=== PATIENT | male | born 1960 | race Two or more races ===

== ENCOUNTER 2019-01-19 09:20 | Inpatient (IN) | payer SELFPAY ==
--- NOTE | 2019-01-19 09:39 | HP ---
CIWA Score Nausea/Vomitin Muscle Tremors: 4-Moderate,w/Arms Extend Anxiety: 3 Agitation: 3 Paroxysmal Sweats: 3 Orientation: 2-Disoriented Date<2 days Tacttile Disturbances: 0-None Auditory Disturbances: 0-None Visual Disturbances: 1-Very Mild Sensitivity Headache: 0-None Present CIWA-Ar Total Score: 19 - Admission Criteria OASAS Guidelines: Admission for Medically Managed Detox: Requires at least one of the followin. CIWA greater than 12 2. Seizures within the past 24 hours 3. Delirium tremens within the past 24 hours 4. Hallucinations within the past 24 hours 5. Acute intervention needed for co occurring medical disorder 6. Acute intervention needed for co occurring psychiatric disorder 7. Severe withdrawal that cannot be handled at a lower level of care (continued vomiting, continued diarrhea, abnormal vital signs) requiring intravenous medication and/or fluids 8. Admitting History and Physical - Admission Chief Complaint: "I want to come in for detox." History Source: Patient Limitations to Obtaining History: No Limitations - Past Medical History Pulmonary: Yes: Asthma, Bronchitis - Past Surgical History Past Surgical History: Yes: None - Advance Directives Advance Directives: No: Living Will, Health Care Proxy, DNR - Smoking History Smoking history: Current every day smoker Have you smoked in the past 12 months: Yes Aproximately how many cigarettes per day: 3 - Alcohol/Substance Use Hx Alcohol Use: Yes (1/5 vodka every other day and beers daily 6 pack) Number of Drinks Daily: 10 History of Substance Use: reports: None Date of Last Use: 01/18/19 - Social History Usual Living Arrangement: Yes: Alone Do you think of yourself as: Straight/Heterosexual ADL: Independent History of Recent Travel: Yes Admission [facility] Allergies/Adverse Reactions: Allergies Allergy/AdvReac Type Severity Reaction Status Date / Time No Known Allergies Allergy Verified 01/19/19 09:53 Exam Limitations: No Limitations - Ebola screening Have you traveled outside of the country in the last 21 days: No Have you had contact with anyone from an Ebola affected area: No Have you been sick,other than usual withdrawal symptoms: No Do you have a fever: No - Review of Systems Constitutional: Chills EENT: reports: Blurred Vision Respiratory: reports: No Symptoms reported GI: reports: Nausea, Abdominal cramping : reports: No Symptoms Reported Musculoskeletal: reports: No Symptoms Reported Integumentary: reports: No Symptoms Reported Neuro: reports: No Symptoms reported Endocrine: reports: No Symptoms Reported Hematology: reports: No Symptoms Reported Psychiatric: reports: Judgement Intact, Mood/Affect Appropiate, Orientated x3 Other Systems: Reviewed and Negative Patient History - Patient Medical History Hx Asthma: No Hx Chronic Obstructive Pulmonary Disease (COPD): No Hx Cardiac Disorders: No Hx Hypertension: No Hx Seizures: No Hx Diabetes: No Hx Gastrointestinal Disorders: No Hx Liver Disease: Yes Hx Genitourinary Disorders: No Hx Sexually Transmitted Disorders: No Hx Renal Disease (ESRD): No Hx Depression: Yes Hx Suicide Attempt: Yes (suicidal attempted x3, last attempted in 1991) Hx Schizophrenia: No - Patient Surgical History Past Surgical History: Yes Hx Neurologic Surgery: No Hx Cataract Extraction: No Hx Cardiac Surgery: No Hx Lung Surgery: No Hx Breast Surgery: No Hx Breast Biopsy: No Hx Abdominal Surgery: No Hx Appendectomy: No Hx Cholecystectomy: No Hx Genitourinary Surgery: No Hx Section: No Hx Orthopedic Surgery: Yes (right knee sx in 2005) Other Surgical History: right middle and small finger sx in 1989 Anesthesia Reaction: No - PPD History Previous Implant?: No Documented Results: Positive w/o proof Implanted On Prior [facility] Admission?: No Date: 04/01/11 Results: 0 mm PPD to be Administered?: No - Smoking Cessation Smoking history: Current every day smoker Have you smoked in the past 12 months: Yes Aproximately how many cigarettes per day: 3 Hx Chewing Tobacco Use: No Initiated information on smoking cessation: Yes 'Breaking Loose' booklet given: 01/19/19 - Substances abused Alcohol Substance route: Oral Frequency: Daily Amount used: 1 pint of vodka Age of first use: 12 Date of last use: 01/19/19 Admission Physical Exam [facility] - Physical General Appearance: Yes: Mild Distress HEENTM: Yes: EOMI, Hearing grossly Normal, Normal ENT Inspection, Normocephalic , Normal Voice, MARK, Pharynx Normal, Tm's normal Respiratory: Yes: Within Normal Limits, Chest Non-Tender, Lungs Clear Neck: Yes: No masses,lesions,Nodules, Trachea in good position Breast: Yes: Within Normal Limits Cardiology: Yes: Regular Rhythm, Regular Rate Abdominal: Yes: Normal Bowel Sounds, Non Tender, Protuberent Genitourinary: Yes: Within Normal Limits Back: Yes: Normal Inspection Musculoskeletal: Yes: full range of Motion, Gait Steady, Pelvis Stable Extremities: Yes: Normal Capillary Refill, Normal Inspection, Normal Range of Motion, Non-Tender Neurological: Yes: shoulder boner II-XII NML intact, Fully Oriented, Alert, Motor Strength 5/5, Normal Mood/Affect, Normal Response Integumentary: Yes: Normal Color, Warm Lymphatic: Yes: Within Normal Limits - Diagnostic (1) Alcohol dependence with withdrawal Current Visit: Yes Status: Acute Cleared for Admission [facility] - Detox or Rehab [facility] Level of Care: Medically Managed Detox Regimen/Protocol: Not Applicable (ativan protocol) Claeared for Rehab Admission: No Screened but not Admitted - Documentation of Visit Screened but not Admitted: No Inpatient Rehab Admission - Rehab Decision to Admit Inpatient rehab admission?: No
[2019-01-19 09:59] VITALS: BMI 34.7
[2019-01-19] MEDS ORDERED: LORazepam 1 MG TABLET PO PRN (10:38)
[2019-01-19] MEDS ORDERED: BISMUTH SUBSALICYLATE 524 MG/30 ML UD PO PRN (10:38)
[2019-01-19] MEDS ORDERED: METHOCARBAMOL 500 MG TABLET PO PRN (10:38)
[2019-01-19] MEDS ORDERED: hydrOXYzine PAMOATE 25 MG CAPSULE (FP) PO PRN (10:38)
[2019-01-19] MEDS ORDERED: MAG HYDROX/AL HYDROX/SIMETH 30 ML UNIT-DOSE CUP PO PRN (10:38)
[2019-01-19] MEDS ORDERED: MAGNESIUM HYDROX 2400MG/30ML ORAL SUSPENSION 30 ML CUP PO PRN (10:38)
[2019-01-19] MEDS ORDERED: MAGNESIUM CITRATE 300 ML BOTTLE PO PRN (10:38)
[2019-01-19] MEDS ORDERED: ACETAMINOPHEN 325 MG TABLET (FP) PO PRN ×2 (10:38)
[2019-01-19] MEDS ORDERED: IBUPROFEN 400 MG TABLET (FP) PO PRN (10:38)
[2019-01-19] MEDS ORDERED: MELATONIN 5 MG TABLETS PO PRN (10:38)
[2019-01-19] MEDS ORDERED: ALBUTEROL SO4 8 GM HFA INHALER IH PRN (10:41)
[2019-01-19] MEDS ORDERED: guaiFENesin/CODEINE 10 ML UNIT-DOSE CUPS PO PRN (10:42)
[2019-01-19] MEDS ORDERED: ONDANSETRON *ODT* 4 MG TABLET SL PRN (11:26)
[2019-01-19] MEDS: LORazepam 2 MG TABLET PO SCH ×3 (14:26→22:04)
[2019-01-19] MEDS: MENTHOL/PHENOL 1 EACH UD MM PRN (14:28)
[2019-01-19] MEDS ORDERED: guaiFENesin 200 MG/10 ML 10 ML UNIT-DOSE CUPS PO PRN (15:06)
[2019-01-19 15:57] LABS: HEMATOCRIT 45.5 % (35.4-49); HEMOGLOBIN 15.1 GM/dL (11.7-16.9); MCH 29.5 pg (25.7-33.7); MCHC 33.1 g/dl (32.0-35.9); MEAN CELL VOLUME 89.2 fl (80-96); MEAN PLT VOLUME 9.2 fl (7.5-11.1); PLATELET COUNT 244 K/MM3 (134-434); RDW 14.3 % (11.9-15.9); WHITE BLOOD COUNT 4.1 K/mm3 (4.0-10.0)
[2019-01-19 16:31] LABS: ALBUMIN 3.9 g/dl (3.4-5.0); BILIRUBIN,TOTAL 0.3 mg/dL (0.2-1); BLOOD UREA NITROGEN 13.6 mg/dL (7-18); CALCIUM 9.5 mg/dL (8.5-10.1); CREATININE 1.1 mg/dL (0.55-1.3); POTASSIUM 4.1 mmol/L (3.5-5.1)
[2019-01-19] MEDS: THIAMINE HCL 100 MG TABLET (FP) PO SCH (22:04)
[2019-01-19] MEDS: FLUTICASONE/SALMETEROL 100 MCG/50 MCG DISKUS IH SCH (22:04)
[2019-01-20] MEDS: LORazepam 2 MG TABLET PO SCH ×4 (06:18→22:01)
[2019-01-20] MEDS: PRENATAL VITAMINS W/ FOLIC ACID TABLET (FP) PO SCH (10:38)
[2019-01-20] MEDS: FLUTICASONE/SALMETEROL 100 MCG/50 MCG DISKUS IH SCH ×2 (10:38→22:02)
[2019-01-20] MEDS: NICOTINE 7 MG/24 HOURS TOPICAL PATCH TD SCH (10:41)
[2019-01-20] MEDS ORDERED: FLU VACCINE QUAD 60 MCG/0.5 ML (MDV 19-20) IM ONE (12:00)
--- NOTE | 2019-01-20 14:57 | PN ---
S CIWA - CIWA Score Nausea/Vomitin-Mild Nausea/No Vomiting Muscle Tremors: 4-Moderate,w/Arms Extend Anxiety: 3 Agitation: 2 Paroxysmal Sweats: 2 Orientation: 1-Uncertain about Date (date of week) Tacttile Disturbances: 0-None Auditory Disturbances: 0-None Visual Disturbances: 0-None Headache: 0-None Present CIWA-Ar Total Score: 13 S Progress Note (SOAP) Subjective: 58 years old male admitted on 01/19/19 treated with ativen detox regimen request psychiatric consultation that he is taking seroquel patient ate breakfast resting on bed feeling tired limited conversation with staff Objective: 01/20/19 14:57 Vital Signs Temperature 98.1 F 01/20/19 13:06 Pulse Rate 81 01/20/19 13:06 Respiratory Rate 18 01/20/19 13:06 Blood Pressure 124/88 01/20/19 13:06 O2 Sat by Pulse Oximetry (%) Laboratory Last Values WBC 4.1 K/mm3 (4.0-10.0) 01/19/19 10:55 RBC 5.10 M/mm3 (4.00-5.60) 01/19/19 10:55 Hgb 15.1 GM/dL (11.7-16.9) 01/19/19 10:55 Hct 45.5 % (35.4-49) 01/19/19 10:55 MCV 89.2 fl (80-96) 01/19/19 10:55 MCH 29.5 pg (25.7-33.7) 01/19/19 10:55 MCHC 33.1 g/dl (32.0-35.9) 01/19/19 10:55 RDW 14.3 % (11.9-15.9) D 01/19/19 10:55 Plt Count 244 K/MM3 (134-434) D 01/19/19 10:55 MPV 9.2 fl (7.5-11.1) 01/19/19 10:55 Sodium 140 mmol/L (136-145) 01/19/19 10:55 Potassium 4.1 mmol/L (3.5-5.1) 01/19/19 10:55 Chloride 111 mmol/L (98-107) H 01/19/19 10:55 Carbon Dioxide 22 mmol/L (21-32) 01/19/19 10:55 Anion Gap 7 MMOL/L (8-16) L 01/19/19 10:55 BUN 13.6 mg/dL (7-18) 01/19/19 10:55 Creatinine 1.1 mg/dL (0.55-1.3) 01/19/19 10:55 Est GFR (CKD-EPI)AfAm 85.31 01/19/19 10:55 Est GFR (CKD-EPI)NonAf 73.61 01/19/19 10:55 Random Glucose 97 mg/dL (74-106) 01/19/19 10:55 Calcium 9.5 mg/dL (8.5-10.1) 01/19/19 10:55 Total Bilirubin 0.3 mg/dL (0.2-1) 01/19/19 10:55 AST 13 U/L (15-37) L 01/19/19 10:55 ALT 28 U/L (13-61) 01/19/19 10:55 Alkaline Phosphatase 100 U/L (45-117) 01/19/19 10:55 Total Protein 7.0 g/dl (6.4-8.2) 01/19/19 10:55 Albumin 3.9 g/dl (3.4-5.0) 01/19/19 10:55 RPR Titer Nonreactive (NONREACTIVE) 01/19/19 10:55 HIV 1&2 Antibody Screen Negative 01/19/19 10:55 HIV P24 Antigen Negative 01/19/19 10:55 lab ntoed Assessment: 01/20/19 14:58 alcohol withdrawal sx Plan: continue ativen detox regimen
[2019-01-20] MEDS: THIAMINE HCL 100 MG TABLET (FP) PO SCH (22:01)
[2019-01-21] MEDS: LORazepam 1 MG TABLET PO SCH ×4 (06:28→22:09)
[2019-01-21] MEDS: PRENATAL VITAMINS W/ FOLIC ACID TABLET (FP) PO SCH (10:21)
[2019-01-21] MEDS: FLUTICASONE/SALMETEROL 100 MCG/50 MCG DISKUS IH SCH ×2 (10:21→22:09)
[2019-01-21] MEDS: NICOTINE 7 MG/24 HOURS TOPICAL PATCH TD SCH (10:22)
--- NOTE | 2019-01-21 11:05 | PN ---
S CIWA - CIWA Score Nausea/Vomitin-Mild Nausea/No Vomiting Muscle Tremors: 2 Anxiety: 3 Agitation: 2 Paroxysmal Sweats: 2 Orientation: 0-Oriented Tacttile Disturbances: 0-None Auditory Disturbances: 0-None Visual Disturbances: 0-None Headache: 2-Mild CIWA-Ar Total Score: 12 S Progress Note (SOAP) Subjective: 58 years old male admitted on 01/19/19 for alcohol withdrawal sx management treated with ativan detox regimen patient is alert speech clearly denies suicidal ideation requests to be seen by a psychiatrist feeling tired resting on bed encourage to attend meetings and groups Objective: 01/21/19 11:04 Vital Signs Temperature 98.3 F 01/21/19 09:05 Pulse Rate 90 01/21/19 09:05 Respiratory Rate 20 01/21/19 09:05 Blood Pressure 118/83 01/21/19 09:05 O2 Sat by Pulse Oximetry (%) Laboratory Last Values WBC 4.1 K/mm3 (4.0-10.0) 01/19/19 10:55 RBC 5.10 M/mm3 (4.00-5.60) 01/19/19 10:55 Hgb 15.1 GM/dL (11.7-16.9) 01/19/19 10:55 Hct 45.5 % (35.4-49) 01/19/19 10:55 MCV 89.2 fl (80-96) 01/19/19 10:55 MCH 29.5 pg (25.7-33.7) 01/19/19 10:55 MCHC 33.1 g/dl (32.0-35.9) 01/19/19 10:55 RDW 14.3 % (11.9-15.9) D 01/19/19 10:55 Plt Count 244 K/MM3 (134-434) D 01/19/19 10:55 MPV 9.2 fl (7.5-11.1) 01/19/19 10:55 Sodium 140 mmol/L (136-145) 01/19/19 10:55 Potassium 4.1 mmol/L (3.5-5.1) 01/19/19 10:55 Chloride 111 mmol/L (98-107) H 01/19/19 10:55 Carbon Dioxide 22 mmol/L (21-32) 01/19/19 10:55 Anion Gap 7 MMOL/L (8-16) L 01/19/19 10:55 BUN 13.6 mg/dL (7-18) 01/19/19 10:55 Creatinine 1.1 mg/dL (0.55-1.3) 01/19/19 10:55 Est GFR (CKD-EPI)AfAm 85.31 01/19/19 10:55 Est GFR (CKD-EPI)NonAf 73.61 01/19/19 10:55 Random Glucose 97 mg/dL (74-106) 01/19/19 10:55 Calcium 9.5 mg/dL (8.5-10.1) 01/19/19 10:55 Total Bilirubin 0.3 mg/dL (0.2-1) 01/19/19 10:55 AST 13 U/L (15-37) L 01/19/19 10:55 ALT 28 U/L (13-61) 01/19/19 10:55 Alkaline Phosphatase 100 U/L (45-117) 01/19/19 10:55 Total Protein 7.0 g/dl (6.4-8.2) 01/19/19 10:55 Albumin 3.9 g/dl (3.4-5.0) 01/19/19 10:55 RPR Titer Nonreactive (NONREACTIVE) 01/19/19 10:55 HIV 1&2 Antibody Screen Negative 01/19/19 10:55 HIV P24 Antigen Negative 01/19/19 10:55 lab noted Assessment: 01/21/19 11:05 alcohol withdrawal sx Plan: continue ativan detox regimen
--- NOTE | 2019-01-21 14:58 | CONSULT ---
[facility] Psychiatric Consult - Data Date of interview: 01/21/19 Admission source: [facility] Identifying data: Readmission to [facility] for this 58 y/o AA male self- referred for detoxification ([facility]USUM issues : alcohol, cocaine, nicotine, phencyclidine, according to patient). Interviewed at [address] [place] [address]. Patient is , a father of two, domiciled, unemployed and deprived of any source of income. Substance Abuse History: Discussed with the patient. Details are concordant with current [facility] data : Smoking history: Current every day smoker. Have you smoked in the past 12 months: Yes. Aproximately how many cigarettes per day: 3. Hx Chewing Tobacco Use: No. Initiated information on smoking cessation: Yes. 'Breaking Loose' booklet given: 01/19/19. - Substances abused. Alcohol. Substance route: Oral. Frequency: Daily. Amount used: 1 pint of vodka. Age of first use: 12. Date of last use: 01/19/19 Medical History: Obesity, bronchial asthma and history of orthosurgery (right knee) + surgery (right middle finger and fifth finger). Psychiatric History: Patient denies history of psychiatric hospitalizations. No recent psychiatric OPD care although claiming diagnosis of PTSD (unclear). Mr Samson guillory reports history of two suicide attempts (self-mutilation in 1991 + hanging in 2014). Physical/Sexual Abuse/Trauma History: Patient denies. Additional Comment: No toxicology for review. Mental Status Exam - Mental Status Exam Alert and Oriented to: Time, Place, Person Cognitive Function: Good Patient Appearance: Well Groomed (obese) Mood: Withdrawn Affect: Mood Congruent, Normal Range, Constricted Patient Behavior: Fatigued, Cooperative Speech Pattern: Clear Voice Loudness: Normal Thought Process: Intact, Goal Oriented Thought Disorder: Not Present Hallucinations: Denies Suicidal Ideation: Denies Homicidal Ideation: Denies Insight/Judgement: Poor Sleep: Poorly, Difficulty falling asleep (wants seroquel) Appetite: Good Muscle strength/Tone: Normal Gait/Station: Other (slow gait; declines to use his cane for ambulation) Psychiatric Findings - Problem List ([place] 1, 2,3) (1) Alcohol dependence with withdrawal Current Visit: Yes Status: Acute (2) Cannabis dependence Current Visit: Yes Status: Chronic (3) Cocaine dependence Current Visit: Yes Status: Chronic (4) Substance induced mood disorder Current Visit: Yes Status: Chronic (5) Insomnia Current Visit: Yes Status: Chronic - Initial Treatment Plan Initial Treatment Plan: Psychoeducation. Sleep hygiene. Detoxification. Seroquel 100 mg po hs (patient's request). Side effects/benefits discussed with patient. Made aware of potential for sedation, fall, abnormal involuntary movement disorder and metabolic syndrome. Mr Samson guillory gave consent for this plan of care. Observation.
[2019-01-21] MEDS: THIAMINE HCL 100 MG TABLET (FP) PO SCH (22:09)
[2019-01-21] MEDS: QUEtiapine FUMARATE 100 MG TABLET (FP) PO SCH (22:09)
[2019-01-22] MEDS ORDERED: LORazepam 0.5 MG TABLET PO PRN
[2019-01-22] MEDS: LORazepam 0.5 MG TABLET PO SCH ×4 (05:55→22:08)
--- NOTE | 2019-01-22 09:33 | PN ---
S CIWA - CIWA Score Nausea/Vomitin-No Nausea/No Vomiting Muscle Tremors: 2 Anxiety: 2 Agitation: 2 Paroxysmal Sweats: 1-Minimal Palms Moist Orientation: 0-Oriented Tacttile Disturbances: 0-None Auditory Disturbances: 0-None Visual Disturbances: 0-None Headache: 1-Very Mild CIWA-Ar Total Score: 8 S Progress Note (SOAP) Subjective: 58 years old male admitted on 01/19/19 for alcohol withdrawal sx management treated with ativan detox regimen feeling better today ate breakfast resting on bed comfortably encourage community support networking as well as behavior and psychosocial therapies Objective: 01/22/19 09:33 Vital Signs Temperature 96.6 F L 01/22/19 09:13 Pulse Rate 116 H 01/22/19 09:13 Respiratory Rate 18 01/22/19 09:13 Blood Pressure 105/82 01/22/19 09:13 O2 Sat by Pulse Oximetry (%) Laboratory Last Values WBC 4.1 K/mm3 (4.0-10.0) 01/19/19 10:55 RBC 5.10 M/mm3 (4.00-5.60) 01/19/19 10:55 Hgb 15.1 GM/dL (11.7-16.9) 01/19/19 10:55 Hct 45.5 % (35.4-49) 01/19/19 10:55 MCV 89.2 fl (80-96) 01/19/19 10:55 MCH 29.5 pg (25.7-33.7) 01/19/19 10:55 MCHC 33.1 g/dl (32.0-35.9) 01/19/19 10:55 RDW 14.3 % (11.9-15.9) D 01/19/19 10:55 Plt Count 244 K/MM3 (134-434) D 01/19/19 10:55 MPV 9.2 fl (7.5-11.1) 01/19/19 10:55 Sodium 140 mmol/L (136-145) 01/19/19 10:55 Potassium 4.1 mmol/L (3.5-5.1) 01/19/19 10:55 Chloride 111 mmol/L (98-107) H 01/19/19 10:55 Carbon Dioxide 22 mmol/L (21-32) 01/19/19 10:55 Anion Gap 7 MMOL/L (8-16) L 01/19/19 10:55 BUN 13.6 mg/dL (7-18) 01/19/19 10:55 Creatinine 1.1 mg/dL (0.55-1.3) 01/19/19 10:55 Est GFR (CKD-EPI)AfAm 85.31 01/19/19 10:55 Est GFR (CKD-EPI)NonAf 73.61 01/19/19 10:55 Random Glucose 97 mg/dL (74-106) 01/19/19 10:55 Calcium 9.5 mg/dL (8.5-10.1) 01/19/19 10:55 Total Bilirubin 0.3 mg/dL (0.2-1) 01/19/19 10:55 AST 13 U/L (15-37) L 01/19/19 10:55 ALT 28 U/L (13-61) 01/19/19 10:55 Alkaline Phosphatase 100 U/L (45-117) 01/19/19 10:55 Total Protein 7.0 g/dl (6.4-8.2) 01/19/19 10:55 Albumin 3.9 g/dl (3.4-5.0) 01/19/19 10:55 RPR Titer Nonreactive (NONREACTIVE) 01/19/19 10:55 HIV 1&2 Antibody Screen Negative 01/19/19 10:55 HIV P24 Antigen Negative 01/19/19 10:55 lab noted Assessment: 01/22/19 09:33 alcohol withdrawal sx Plan: continue ativan detox regimen
[2019-01-22] MEDS: PRENATAL VITAMINS W/ FOLIC ACID TABLET (FP) PO SCH (10:50)
[2019-01-22] MEDS: NICOTINE 7 MG/24 HOURS TOPICAL PATCH TD SCH (10:51)
[2019-01-22] MEDS: MENTHOL/PHENOL 1 EACH UD MM PRN (10:51)
[2019-01-22] MEDS: FLUTICASONE/SALMETEROL 100 MCG/50 MCG DISKUS IH SCH ×2 (10:51→23:41)
[2019-01-22] MEDS: QUEtiapine FUMARATE 100 MG TABLET (FP) PO SCH (22:08)
[2019-01-22] MEDS: THIAMINE HCL 100 MG TABLET (FP) PO SCH (22:08)
[2019-01-23] MEDS ORDERED: LORazepam 0.5 MG TABLET PO ONE (05:00)
[2019-01-23 09:30] VITALS: BP 115/77; PULSE 110; TEMP 98.5
--- NOTE | 2019-01-23 10:04 | PN ---
[facility] CIWA - CIWA Score Nausea/Vomitin-No Nausea/No Vomiting Muscle Tremors: 1-None Visible, but [place] Anxiety: 1-Mildly Anxious Agitation: 0-Normal Activity Paroxysmal Sweats: No Perspiration Orientation: 0-Oriented Tacttile Disturbances: 0-None Auditory Disturbances: 0-None Visual Disturbances: 0-None Headache: 0-None Present CIWA-Ar Total Score: 2 BHS Progress Note (SOAP) Subjective: alert,no complaint Objective: 01/23/19 10:02 Vital Signs Temperature 98.5 F 01/23/19 09:29 Pulse Rate 110 H 01/23/19 09:29 Respiratory Rate 18 01/23/19 09:29 Blood Pressure 115/77 01/23/19 09:29 O2 Sat by Pulse Oximetry (%) Assessment: 01/23/19 10:02 no withdrawal symptom Plan: discharge today,follow up with after care program as arrangement
--- NOTE | 2019-01-23 10:05 | DS ---
[facility] Detox Discharge Summary Admission Date: 01/19/19 Discharge Date: 01/23/19 - History Present History: Alcohol Dependence Additional Comments: stable for discharge,follow up with after care program as arrangement - Physical Exam Results Vital Signs: Vital Signs Temperature 98.5 F 01/23/19 09:29 Pulse Rate 110 H 01/23/19 09:29 Respiratory Rate 18 01/23/19 09:29 Blood Pressure 115/77 01/23/19 09:29 O2 Sat by Pulse Oximetry (%) Pertinent Admission Physical Exam Findings: withdrawal signs and symptom Laboratory Last Values WBC 4.1 K/mm3 (4.0-10.0) 01/19/19 10:55 RBC 5.10 M/mm3 (4.00-5.60) 01/19/19 10:55 Hgb 15.1 GM/dL (11.7-16.9) 01/19/19 10:55 Hct 45.5 % (35.4-49) 01/19/19 10:55 MCV 89.2 fl (80-96) 01/19/19 10:55 MCH 29.5 pg (25.7-33.7) 01/19/19 10:55 MCHC 33.1 g/dl (32.0-35.9) 01/19/19 10:55 RDW 14.3 % (11.9-15.9) D 01/19/19 10:55 Plt Count 244 K/MM3 (134-434) D 01/19/19 10:55 MPV 9.2 fl (7.5-11.1) 01/19/19 10:55 Sodium 140 mmol/L (136-145) 01/19/19 10:55 Potassium 4.1 mmol/L (3.5-5.1) 01/19/19 10:55 Chloride 111 mmol/L (98-107) H 01/19/19 10:55 Carbon Dioxide 22 mmol/L (21-32) 01/19/19 10:55 Anion Gap 7 MMOL/L (8-16) L 01/19/19 10:55 BUN 13.6 mg/dL (7-18) 01/19/19 10:55 Creatinine 1.1 mg/dL (0.55-1.3) 01/19/19 10:55 Est GFR (CKD-EPI)AfAm 85.31 01/19/19 10:55 Est GFR (CKD-EPI)NonAf 73.61 01/19/19 10:55 Random Glucose 97 mg/dL (74-106) 01/19/19 10:55 Calcium 9.5 mg/dL (8.5-10.1) 01/19/19 10:55 Total Bilirubin 0.3 mg/dL (0.2-1) 01/19/19 10:55 AST 13 U/L (15-37) L 01/19/19 10:55 ALT 28 U/L (13-61) 01/19/19 10:55 Alkaline Phosphatase 100 U/L (45-117) 01/19/19 10:55 Total Protein 7.0 g/dl (6.4-8.2) 01/19/19 10:55 Albumin 3.9 g/dl (3.4-5.0) 01/19/19 10:55 RPR Titer Nonreactive (NONREACTIVE) 01/19/19 10:55 HIV 1&2 Antibody Screen Negative 01/19/19 10:55 HIV P24 Antigen Negative 01/19/19 10:55 - Treatment Hospital Course: Detox Protocol Followed, Detoxed Safely, Responded well, Discharged Condition Good Patient has Accepted a Rehab Referral to: declined - Medication Discharge Medications: Ambulatory Orders Quetiapine Fumarate [Seroquel -] 100 mg PO HS 01/20/19 - Diagnosis (1) Alcohol dependence with withdrawal Current Visit: Yes Status: Acute - AMA Did Patient Leave Against Medical Advice: No
[2019-01-23] MEDS: FLUTICASONE/SALMETEROL 100 MCG/50 MCG DISKUS IH SCH (10:42)
[2019-01-23] MEDS: NICOTINE 7 MG/24 HOURS TOPICAL PATCH TD SCH (10:43)
[2019-01-23] MEDS: PRENATAL VITAMINS W/ FOLIC ACID TABLET (FP) PO SCH (10:43)
== END 2019-01-23 10:05 | disposition home or self-care (01) | DRG 774 ==
LOC: YASAS 09:20 → Y3N 10:14
PROVIDERS: ADMIT Allergy & Immunology; ATTEND Allergy & Immunology
PROC: HZ2ZZZZ Detoxification Services for Substance Abuse Treatment (ICD-10-PCS; principal; 2019-01-19)
DX: F10.230 Alcohol dependence with withdrawal, uncomplicated (principal); F14.20 Cocaine dependence, uncomplicated; F12.20 Cannabis dependence, uncomplicated; F17.210 Nicotine dependence, cigarettes, uncomplicated; F19.24 Other psychoactive substance dependence with psychoactive substance-induced mood disorder; G47.00 Insomnia, unspecified; J45.998 Other asthma; E66.9 Obesity, unspecified; Z68.34 Body mass index [BMI] 34.0-34.9, adult; Z91.5 Personal history of self-harm
CPT/HCPCS: 36415; 71046-TC-FY; 80053; 85027; 86593; 87389; Q0162

== ENCOUNTER 2019-10-08 08:39 | Inpatient (IN) | payer OTHER ==
--- NOTE | 2019-10-08 09:15 | BHS.RME ---
Substance Use & Tx History - Substance Use History Alcohol Substance amount: one pint Gin, 2 x 6 pack of 16 ounce beer Frequency of use: Daily Substance route: Oral Date of Last Use: 10/08/19 (Began age 12 y. No seizure. Blackouts: several, last was years ago. Admits to an eye park attendant) Cocaine- Powder Substance amount: one gram Frequency of use: Once a month Substance route: Inhalation (ex: sniffing or snorting) Date of Last Use: 10/06/19 (Began age 25 y) - Last Treatment Date of last treatment: Jan 2019, detox [facility] Where was last treatment: Detox Physical/Psych/Mental Status - Behavior General Behavior: Increased activity (restlessness, agitation) Eye Contact: Normal - Cooperativeness Cooperativeness: Cooperative - Thinking Thought Processes: Tight Thought content: Future oriented - Physical Health Problems Is patient presently having any pain?: No Does patient presently have any injuries (include location): No Does patient currently have a fever: No CIWA Nausea/Vomitin-Mild Nausea/No Vomiting Muscle Tremors: 2 Anxiety: 3 Agitation: 0-Normal Activity Paroxysmal Sweats: No Perspiration Orientation: 1-Uncertain about Date Tacttile Disturbances: 0-None Auditory Disturbances: 0-None Visual Disturbances: 0-None Headache: 0-None Present CIWA-Ar Total Score: 7
--- NOTE | 2019-10-08 09:35 | HP ---
CIWA Score Nausea/Vomitin-Mild Nausea/No Vomiting Muscle Tremors: 2 Anxiety: 3 Agitation: 0-Normal Activity Paroxysmal Sweats: No Perspiration Orientation: 1-Uncertain about Date Tacttile Disturbances: 0-None Auditory Disturbances: 0-None Visual Disturbances: 0-None Headache: 0-None Present CIWA-Ar Total Score: 7 - Admission Criteria OASAS Guidelines: Admission for Medically Managed Detox: Requires at least one of the followin. CIWA greater than 12 2. Seizures within the past 24 hours 3. Delirium tremens within the past 24 hours 4. Hallucinations within the past 24 hours 5. Acute intervention needed for co occurring medical disorder 6. Acute intervention needed for co occurring psychiatric disorder 7. Severe withdrawal that cannot be handled at a lower level of care (continued vomiting, continued diarrhea, abnormal vital signs) requiring intravenous medication and/or fluids 8. Admitting History and Physical - Admission Chief Complaint: " Drinking, I can't stop on my own" History of Present Illness: Patient is a 59 year old male with history of alcohol dependence in early withdrawal, cocaine use disorder and nicotine dependence. He was last here in 01/19- completed detox and then went home, relapsed immediately. Substance Use & Tx History - Substance Use History Alcohol Substance amount: one pint Gin, 2 x 6 pack of 16 ounce beer Frequency of use: Daily Substance route: Oral Date of Last Use: 10/08/19 (Began age 12 y. No seizure. Blackouts: several, last was years ago. 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 He meets criteria is currently intoxicated and that is why his CIWA is 7 at the moment. He has a poor recovery environment as he is homeless and has medical co morbidity and psychiatric complications. His BEBE=0.049 - Past Medical History Pulmonary: Yes: Asthma, Bronchitis - Past Surgical History Past Surgical History: Yes: None - Smoking History Smoking history: Current every day smoker Have you smoked in the past 12 months: Yes Aproximately how many cigarettes per day: 3 - Alcohol/Substance Use Hx Alcohol Use: Yes (1/5 vodka every other day and beers daily 6 pack) Number of Drinks Daily: 10 History of Substance Use: reports: None Date of Last Use: 01/18/19 - Social History ADL: Independent History of Recent Travel: Yes Admission [facility] Allergies/Adverse Reactions: Allergies Allergy/AdvReac Type Severity Reaction Status Date / Time No Known Allergies Allergy Verified 10/08/19 10:25 History of Present Illness: See Vitals done by nursing in nursing screen. Exam Limitations: No Limitations - Ebola screening Have you traveled outside of the country in the last 21 days: No Have you had contact with anyone from an Ebola affected area: No Have you been sick,other than usual withdrawal symptoms: No Do you have a fever: No - Review of Systems Constitutional: No Symptoms Reported EENT: reports: No Symptoms Reported Respiratory: reports: No Symptoms reported Cardiac: reports: No Symptoms Reported GI: reports: Nausea : reports: Frequency Musculoskeletal: reports: No Symptoms Reported Integumentary: reports: No Symptoms Reported Neuro: reports: No Symptoms reported Endocrine: reports: No Symptoms Reported Hematology: reports: No Symptoms Reported Psychiatric: reports: Judgement Intact, Mood/Affect Appropiate, Orientated x3, Agitated, Anxious Other Systems: Reviewed and Negative Patient History - Patient Medical History Hx Anemia: No Hx Asthma: No Hx Chronic Obstructive Pulmonary Disease (COPD): No Hx Cardiac Disorders: No Hx Hypertension: No Hx Seizures: No Hx Diabetes: No Hx Gastrointestinal Disorders: No Hx Liver Disease: Yes Hx Genitourinary Disorders: No Hx Sexually Transmitted Disorders: No Hx Renal Disease (ESRD): No Hx Depression: Yes Hx Suicide Attempt: Yes (suicidal attempted x3, last attempted in 1991) Hx Schizophrenia: No - Patient Surgical History Past Surgical History: Yes Hx Neurologic Surgery: No Hx Cataract Extraction: No Hx Cardiac Surgery: No Hx Lung Surgery: No Hx Breast Surgery: No Hx Breast Biopsy: No Hx Abdominal Surgery: No Hx Appendectomy: No Hx Cholecystectomy: No Hx Genitourinary Surgery: No Hx Section: No Hx Orthopedic Surgery: Yes (right knee sx in 2005) Other Surgical History: right middle and small finger sx in 1989 Anesthesia Reaction: No - PPD History Previous Implant?: Yes Documented Results: Negative w/proof Implanted On Prior [facility] Admission?: Yes Date: 04/01/11 Results: 0 mm PPD to be Administered?: Yes - Smoking Cessation Smoking history: Current every day smoker Have you smoked in the past 12 months: Yes Aproximately how many cigarettes per day: 3 Hx Chewing Tobacco Use: No Initiated information on smoking cessation: Yes 'Breaking Loose' booklet given: 10/08/19 - Substances abused Alcohol Substance route: Oral Frequency: Daily Amount used: 1 pint gin Age of first use: 12 Date of last use: 10/08/19 Cocaine Substance route: Inhalation Frequency: Daily Amount used: 1 gram Age of first use: 25 Date of last use: 10/06/19 Admission Physical Exam [facility] Physical General Appearance: Yes: Alcohol on Breath, Tremorous, Irritable, Anxious HEENTM: Yes: EOMI, Hearing grossly Normal, Normal ENT Inspection, Normocephalic, Normal Voice, MARK, Pharynx Normal, Tm's normal Respiratory: Yes: Chest Non-Tender, Lungs Clear, Normal Breath Sounds, No Respiratory Distress, No Accessory Muscle Use Neck: Yes: No masses,lesions,Nodules, Supple, Trachea in good position Breast: Yes: Within Normal Limits Cardiology: Yes: Regular Rhythm, Regular Rate, S1, S2 Abdominal: Yes: Normal Bowel Sounds, Non Tender, Soft, Protuberent, Surgical Scar (multiple abdominal scars) Genitourinary: Yes: Within Normal Limits Back: Yes: Normal Inspection Musculoskeletal: Yes: full range of Motion, Gait Steady, Pelvis Stable, Other (scar right knee) Extremities: Yes: Normal Capillary Refill, Normal Inspection, Normal Range of Motion, Non-Tender, Other (left shoulder scar and back scar) Neurological: Yes: 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 NML intact, Fully Oriented, Alert, Motor Strength 5/5, Normal Mood/Affect, Normal Response Integumentary: Yes: Normal Color, Dry, Warm Lymphatic: Yes: Within Normal Limits - Diagnostic (1) Alcohol dependence with withdrawal Current Visit: Yes Status: Acute (2) Cocaine dependence Current Visit: No Status: Chronic (3) Insomnia Current Visit: Yes Status: Chronic (4) Substance induced mood disorder Current Visit: Yes Status: Chronic (5) Chronic bronchitis Current Visit: Yes Status: Acute Cleared for Admission [facility] - Detox or Rehab [facility] Level of Care: Medically Managed Detox Regimen/Protocol: Librium Claeared for Rehab Admission: No Screened but not Admitted - Documentation of Visit Screened but not Admitted: No Breathalyzer - Breathalyzer Breathalyzer: 0.049 Vital Signs - Vital Signs Vital signs refused: No Urine Drug Screen - Test Device Lot number: [id number] Expiration date: 10/05/21 - Control Is test valid?: Yes - Results Drug screen NEGATIVE: Yes Urine drug screen results: JOE-Cocaine Inpatient Rehab Admission - Rehab Decision to Admit Inpatient rehab admission?: No
[2019-10-08] MEDS ORDERED: MAGNESIUM HYDROX 2400MG/30ML ORAL SUSPENSION 30 ML CUP PO PRN (09:46)
[2019-10-08] MEDS ORDERED: METHOCARBAMOL 500 MG TABLET PO PRN (09:46)
[2019-10-08] MEDS ORDERED: IBUPROFEN 400 MG TABLET (FP) PO PRN (09:46)
[2019-10-08] MEDS ORDERED: MAGNESIUM CITRATE 300 ML BOTTLE PO PRN (09:46)
[2019-10-08] MEDS ORDERED: MENTHOL/PHENOL 1 EACH UD MM PRN (09:46)
[2019-10-08] MEDS ORDERED: chlordiazePOXIDE HCL 25 MG CAPSULE PO PRN (09:46)
[2019-10-08] MEDS ORDERED: ONDANSETRON *ODT* 4 MG TABLET SL ONE (09:46)
[2019-10-08] MEDS ORDERED: MAG HYDROX/AL HYDROX/SIMETH 30 ML UNIT-DOSE CUP PO PRN (09:46)
[2019-10-08] MEDS ORDERED: BISMUTH SUBSALICYLATE 262 MG/15 ML BTL PO PRN (09:46)
[2019-10-08] MEDS ORDERED: ACETAMINOPHEN 325 MG TABLET (FP) PO PRN ×2 (09:46)
[2019-10-08] MEDS ORDERED: guaiFENesin/D-M SUGAR-FREE/ACLHOL-FREE 118 ML BOTTLE PO PRN (09:49)
[2019-10-08] MEDS ORDERED: hydrOXYzine PAMOATE 25 MG CAPSULE (FP) PO SCH (10:00)
[2019-10-08 10:30] VITALS: BMI 32.1
[2019-10-08] MEDS ORDERED: ALBUTEROL SO4 HFA INHALER IH PRN (10:55)
[2019-10-08] MEDS ORDERED: hydrOXYzine PAMOATE 25 MG CAPSULE (FP) PO PRN (11:00)
[2019-10-08] MEDS ORDERED: guaiFENesin 200 MG/10 ML 10 ML UNIT-DOSE CUPS PO PRN (11:22)
[2019-10-08] MEDS: chlordiazePOXIDE HCL 25 MG CAPSULE PO SCH ×3 (11:30→22:39)
[2019-10-08] MEDS: NICOTINE 7 MG/24 HOURS TOPICAL PATCH TD SCH (11:35)
[2019-10-08] MEDS: PRENATAL VITAMINS W/ FOLIC ACID TABLET (FP) PO SCH (11:35)
[2019-10-08 13:06] LABS: HEMATOCRIT 44.9 % (35.4-49); HEMOGLOBIN 15.2 GM/dL (11.7-16.9); MCH 30.2 pg (25.7-33.7); MCHC 33.8 g/dl (32.0-35.9); MEAN CELL VOLUME 89.6 fl (80-96); MEAN PLT VOLUME 9.2 fl (7.5-11.1); PLATELET COUNT 230 K/MM3 (134-434); RBC 5.01 M/mm3 (4.00-5.60); RDW 14.6 % (11.9-15.9); WHITE BLOOD COUNT 3.2 K/mm3 (4.0-10.0)
[2019-10-08 13:43] LABS: POTASSIUM 3.9 mmol/L (3.5-5.1)
[2019-10-08 14:18] LABS: ALBUMIN 3.9 g/dl (3.4-5.0); BILIRUBIN,TOTAL 0.4 mg/dL (0.2-1); BLOOD UREA NITROGEN 7.5 mg/dL (7-18); CALCIUM 9.4 mg/dL (8.5-10.1); CREATININE 1.1 mg/dL (0.55-1.3); TOT PROT 7.4 g/dl (6.4-8.2)
[2019-10-08] MEDS: MELATONIN 5 MG TABLETS PO SCH (22:39)
[2019-10-08] MEDS: THIAMINE HCL 100 MG TABLET (FP) PO SCH (22:39)
[2019-10-09] MEDS: chlordiazePOXIDE HCL 25 MG CAPSULE PO SCH ×4 (06:02→22:18)
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
[2019-10-09] MEDS: NICOTINE POLACRILEX 2 MG GUM BUC PRN (10:15)
[2019-10-09] MEDS: NICOTINE 7 MG/24 HOURS TOPICAL PATCH TD SCH (10:15)
[2019-10-09] MEDS: PRENATAL VITAMINS W/ FOLIC ACID TABLET (FP) PO SCH (10:15)
--- NOTE | 2019-10-09 10:50 | PN ---
S CIWA - CIWA Score Nausea/Vomitin-No Nausea/No Vomiting Muscle Tremors: 2 Anxiety: 2 Agitation: 2 Paroxysmal Sweats: 2 Orientation: 0-Oriented Tacttile Disturbances: 0-None Auditory Disturbances: 0-None Visual Disturbances: 0-None Headache: 0-None Present CIWA-Ar Total Score: 8 [facility] Progress Note (SOAP) Subjective: sweats shakes Objective: 10/09/19 10:49 Vital Signs Temperature 97.5 F L 10/09/19 05:23 Pulse Rate 58 L 10/09/19 05:23 Respiratory Rate 10/09/19 05:23 Blood Pressure 122/70 10/09/19 05:23 O2 Sat by Pulse Oximetry (%) 97 10/09/19 05:23 Laboratory Tests 10/08/19 10/08/19 10/08/19 09:50 09:50 09:50 WBC 3.2 L RBC 5.01 Hgb 15.2 Hct 44.9 MCV 89.6 MCH 30.2 MCHC 33.8 RDW 14.6 Plt Count 230 MPV 9.2 Sodium 141 Potassium 3.9 Chloride 110 H Carbon Dioxide 24 Anion Gap 7 L BUN 7.5 Creatinine 1.1 Est GFR (CKD-EPI)AfAm 84.71 Est GFR (CKD-EPI)NonAf 73.09 Random Glucose 76 Hemoglobin A1c % Calcium 9.4 Total Bilirubin 0.4 AST 15 ALT 25 Alkaline Phosphatase 92 Total Protein 7.4 Albumin 3.9 Syphilis Serology Non-reactive COVID-19 ([facility]) 10/08/19 10/08/19 10:35 10:40 WBC RBC Hgb Hct MCV MCH MCHC RDW Plt Count MPV Sodium Potassium Chloride Carbon Dioxide Anion Gap BUN Creatinine Est GFR (CKD-EPI)AfAm Est GFR (CKD-EPI)NonAf Random Glucose Hemoglobin A1c % 5.1 Calcium Total Bilirubin AST ALT Alkaline Phosphatase Total Protein Albumin Syphilis Serology COVID-19 ([facility]) Not detected labs noted aaox3 ambulating no acute distress Assessment: 10/09/19 10:49 withdrawals Plan: continue detox increase fluids
[2019-10-09] MEDS: THIAMINE HCL 100 MG TABLET (FP) PO SCH (22:18)
[2019-10-09] MEDS: QUEtiapine FUMARATE 100 MG TABLET (FP) PO SCH (22:18)
[2019-10-09] MEDS: MELATONIN 5 MG TABLETS PO SCH (22:19)
[2019-10-10] MEDS: chlordiazePOXIDE HCL 25 MG CAPSULE PO SCH ×5 (06:40→22:46)
[2019-10-10] MEDS: PRENATAL VITAMINS W/ FOLIC ACID TABLET (FP) PO SCH (10:36)
[2019-10-10] MEDS: NICOTINE 7 MG/24 HOURS TOPICAL PATCH TD SCH (10:36)
--- NOTE | 2019-10-10 12:25 | PN ---
[facility] CIWA - CIWA Score Nausea/Vomitin-No Nausea/No Vomiting Muscle Tremors: 2 Anxiety: 2 Agitation: 2 Paroxysmal Sweats: 2 Orientation: 0-Oriented Tacttile Disturbances: 0-None Auditory Disturbances: 2-Mild Harshness/Frighten Visual Disturbances: 0-None Headache: 0-None Present CIWA-Ar Total Score: 10 S Progress Note (SOAP) Subjective: Complaints of anxiety, tremors, sweats ant noise sensitivity. Objective: 10/10/19 12:23 Vital Signs 10/10/19 10/10/19 05:43 09:40 Temperature 97.5 F L 98.8 F Pulse Rate 65 80 Respiratory 18 20 Rate Blood Pressure 110/69 124/74 O2 Sat by Pulse 97 97 Oximetry (%) Laboratory Last Values WBC 3.2 K/mm3 (4.0-10.0) L 10/08/19 09:50 RBC 5.01 M/mm3 (4.00-5.60) 10/08/19 09:50 Hgb 15.2 GM/dL (11.7-16.9) 10/08/19 09:50 Hct 44.9 % (35.4-49) 10/08/19 09:50 MCV 89.6 fl (80-96) 10/08/19 09:50 MCH 30.2 pg (25.7-33.7) 10/08/19 09:50 MCHC 33.8 g/dl (32.0-35.9) 10/08/19 09:50 RDW 14.6 % (11.9-15.9) 10/08/19 09:50 Plt Count 230 K/MM3 (134-434) 10/08/19 09:50 MPV 9.2 fl (7.5-11.1) 10/08/19 09:50 Sodium 141 mmol/L (136-145) 10/08/19 09:50 Potassium 3.9 mmol/L (3.5-5.1) 10/08/19 09:50 Chloride 110 mmol/L (98-107) H 10/08/19 09:50 Carbon Dioxide 24 mmol/L (21-32) 10/08/19 09:50 Anion Gap 7 MMOL/L (8-16) L 10/08/19 09:50 BUN 7.5 mg/dL (7-18) 10/08/19 09:50 Creatinine 1.1 mg/dL (0.55-1.3) 10/08/19 09:50 Est GFR (CKD-EPI)AfAm 84.71 10/08/19 09:50 Est GFR (CKD-EPI)NonAf 73.09 10/08/19 09:50 Random Glucose 76 mg/dL (74-106) 10/08/19 09:50 Hemoglobin A1c % 5.1 % (4.2-6.3) 10/08/19 10:35 Calcium 9.4 mg/dL (8.5-10.1) 10/08/19 09:50 Total Bilirubin 0.4 mg/dL (0.2-1) 10/08/19 09:50 AST 15 U/L (15-37) 10/08/19 09:50 ALT 25 U/L (13-61) 10/08/19 09:50 Alkaline Phosphatase 92 U/L (45-117) 10/08/19 09:50 Total Protein 7.4 g/dl (6.4-8.2) 10/08/19 09:50 Albumin 3.9 g/dl (3.4-5.0) 10/08/19 09:50 Syphilis Serology Non-reactive (NONREACTIVE) 10/08/19 09:50 COVID-19 ([facility]) Not detected (Not Detected) 10/08/19 10:40 Labs noted. Assessment: 10/10/19 12:23 Alert and oriented x3, in no acute respiratory distress. Full ROM, ambulating in hallway with assistance. Skin warm to touch with no lesions noted. Withdrawal symptoms. Plan: Continue detox protocol.
[2019-10-10] MEDS: NICOTINE POLACRILEX 2 MG GUM BUC PRN (14:23)
[2019-10-10] MEDS ORDERED: MASKS NR ONE (18:21)
[2019-10-10] MEDS: QUEtiapine FUMARATE 100 MG TABLET (FP) PO SCH (22:47)
[2019-10-10] MEDS: MELATONIN 5 MG TABLETS PO SCH (22:47)
[2019-10-10] MEDS: THIAMINE HCL 100 MG TABLET (FP) PO SCH (22:47)
[2019-10-11] MEDS ORDERED: chlordiazePOXIDE HCL 10 MG CAPSULE PO PRN
[2019-10-11] MEDS: chlordiazePOXIDE HCL 10 MG CAPSULE PO SCH ×4 (06:49→22:15)
[2019-10-11] MEDS: PRENATAL VITAMINS W/ FOLIC ACID TABLET (FP) PO SCH (10:09)
[2019-10-11] MEDS: NICOTINE 7 MG/24 HOURS TOPICAL PATCH TD SCH (10:10)
--- NOTE | 2019-10-11 14:45 | PN ---
[facility] CIWA - CIWA Score Nausea/Vomitin-No Nausea/No Vomiting Muscle Tremors: None Anxiety: 4-Mod. Anxious/Guarded Agitation: 4-Moderately Restless Paroxysmal Sweats: No Perspiration Orientation: 0-Oriented Tacttile Disturbances: 0-None Auditory Disturbances: 0-None Visual Disturbances: 0-None Headache: 2-Mild CIWA-Ar Total Score: 10 [facility] Progress Note (SOAP) Subjective: ETOH WITHDRAWAL SX. ROS: C/O ANXIETY, RESTLESSNESS AND HEADACHE Objective: 10/11/19 14:43 Vital Signs Temperature 97.1 F L 10/11/19 09:33 Pulse Rate 78 10/11/19 09:33 Respiratory Rate 20 10/11/19 09:33 Blood Pressure 143/89 10/11/19 09:33 O2 Sat by Pulse Oximetry (%) 95 10/11/19 09:33 Laboratory Tests 10/08/19 10/08/19 10/08/19 09:50 09:50 09:50 WBC 3.2 L RBC 5.01 Hgb 15.2 Hct 44.9 MCV 89.6 MCH 30.2 MCHC 33.8 RDW 14.6 Plt Count 230 MPV 9.2 Sodium 141 Potassium 3.9 Chloride 110 H Carbon Dioxide 24 Anion Gap 7 L BUN 7.5 Creatinine 1.1 Est GFR (CKD-EPI)AfAm 84.71 Est GFR (CKD-EPI)NonAf 73.09 Random Glucose 76 Hemoglobin A1c % Calcium 9.4 Total Bilirubin 0.4 AST 15 ALT 25 Alkaline Phosphatase 92 Total Protein 7.4 Albumin 3.9 Syphilis Serology Non-reactive COVID-19 ([facility]) 10/08/19 10/08/19 10:35 10:40 WBC RBC Hgb Hct MCV MCH MCHC RDW Plt Count MPV Sodium Potassium Chloride Carbon Dioxide Anion Gap BUN Creatinine Est GFR (CKD-EPI)AfAm Est GFR (CKD-EPI)NonAf Random Glucose Hemoglobin A1c % 5.1 Calcium Total Bilirubin AST ALT Alkaline Phosphatase Total Protein Albumin Syphilis Serology COVID-19 ([facility]) Not detected PE ALERT AND ORIENTED X 3 SKIN WARM AND DRY EOMS INTACT BL EXT FULL ROM, AMB AD VINNY NO TREMORS GUARDED/IRRITABLE/RESTLESS Assessment: 10/11/19 14:44 ETOH WITHDRAWAL SX Plan: CONTINUE DETOX
[2019-10-11] MEDS: MELATONIN 5 MG TABLETS PO SCH (22:15)
[2019-10-11] MEDS: QUEtiapine FUMARATE 100 MG TABLET (FP) PO SCH (22:15)
[2019-10-11] MEDS: THIAMINE HCL 100 MG TABLET (FP) PO SCH (22:16)
[2019-10-12] MEDS: chlordiazePOXIDE HCL 10 MG CAPSULE PO SCH ×2 (06:38→17:28)
[2019-10-12] MEDS: PRENATAL VITAMINS W/ FOLIC ACID TABLET (FP) PO SCH (10:40)
[2019-10-12] MEDS: NICOTINE 7 MG/24 HOURS TOPICAL PATCH TD SCH (10:40)
[2019-10-12] MEDS: NICOTINE POLACRILEX 2 MG GUM BUC PRN (10:41)
--- NOTE | 2019-10-12 11:26 | PN ---
[facility] CIWA - CIWA Score Nausea/Vomitin-No Nausea/No Vomiting Muscle Tremors: 1-None Visible, but [place] Anxiety: 1-Mildly Anxious Agitation: 1-Slight > Activity Paroxysmal Sweats: 1-Minimal Palms Moist Orientation: 0-Oriented Tacttile Disturbances: 0-None Auditory Disturbances: 0-None Visual Disturbances: 0-None Headache: 0-None Present CIWA-Ar Total Score: 4 [facility] Progress Note (SOAP) Subjective: agitation sweats Objective: 10/12/19 11:25 Vital Signs Temperature 97.3 F L 10/12/19 08:49 Pulse Rate 91 H 10/12/19 08:49 Respiratory Rate 18 10/12/19 08:49 Blood Pressure 128/75 10/12/19 08:49 O2 Sat by Pulse Oximetry (%) 96 10/12/19 05:11 aaox3 ambulating no acute distress Assessment: 10/12/19 11:26 mild withdrawals Plan: continue detox d/c in am
[2019-10-12] MEDS: QUEtiapine FUMARATE 100 MG TABLET (FP) PO SCH (21:45)
[2019-10-12] MEDS: MELATONIN 5 MG TABLETS PO SCH (21:45)
[2019-10-12] MEDS: THIAMINE HCL 100 MG TABLET (FP) PO SCH (21:47)
[2019-10-13] MEDS ORDERED: chlordiazePOXIDE HCL 10 MG CAPSULE PO ONE (05:00)
[2019-10-13 06:43] VITALS: BP 117/76; PULSE 77; TEMP 97.8
--- NOTE | 2019-10-13 10:31 | DS ---
[facility] Detox Discharge Summary Admission Date: 10/08/19 Discharge Date: 10/13/19 - History Present History: Alcohol Dependence, Cannabis Dependence, Cocaine Dependence - Physical Exam Results Vital Signs: Vital Signs Temperature 97.8 F 10/13/19 05:49 Pulse Rate 77 10/13/19 05:49 Respiratory Rate 18 10/13/19 05:49 Blood Pressure 117/76 10/13/19 05:49 O2 Sat by Pulse Oximetry (%) 96 10/13/19 05:49 Pertinent Admission Physical Exam Findings: Vital Signs Temperature 97.8 F 10/13/19 05:49 Pulse Rate 77 10/13/19 05:49 Respiratory Rate 18 10/13/19 05:49 Blood Pressure 117/76 10/13/19 05:49 O2 Sat by Pulse Oximetry (%) 96 10/13/19 05:49 Laboratory Tests 10/08/19 10/08/19 10/08/19 09:50 09:50 09:50 WBC 3.2 L RBC 5.01 Hgb 15.2 Hct 44.9 MCV 89.6 MCH 30.2 MCHC 33.8 RDW 14.6 Plt Count 230 MPV 9.2 Sodium 141 Potassium 3.9 Chloride 110 H Carbon Dioxide 24 Anion Gap 7 L BUN 7.5 Creatinine 1.1 Est GFR (CKD-EPI)AfAm 84.71 Est GFR (CKD-EPI)NonAf 73.09 Random Glucose 76 Hemoglobin A1c % Calcium 9.4 Total Bilirubin 0.4 AST 15 ALT 25 Alkaline Phosphatase 92 Total Protein 7.4 Albumin 3.9 Syphilis Serology Non-reactive COVID-19 ([facility]) 10/08/19 10/08/19 10:35 10:40 WBC RBC Hgb Hct MCV MCH MCHC RDW Plt Count MPV Sodium Potassium Chloride Carbon Dioxide Anion Gap BUN Creatinine Est GFR (CKD-EPI)AfAm Est GFR (CKD-EPI)NonAf Random Glucose Hemoglobin A1c % 5.1 Calcium Total Bilirubin AST ALT Alkaline Phosphatase Total Protein Albumin Syphilis Serology COVID-19 ([facility]) Not detected aaox3 ambulating no acute distress lungs CTA - Treatment Hospital Course: Detox Protocol Followed, Detoxed Safely, Responded well, Discharged Condition Good, Rehab Referral Accepted - Medication Discharge Medications: Ambulatory Orders Albuterol Sulfate Inhaler - [Ventolin Hfa Inhaler -] 2 inh PO Q4H PRN 08/06/20 - Diagnosis (1) Major depressive disorder Status: Active (2) Alcohol dependence with withdrawal Status: Chronic Qualifiers: Complication of substance-induced condition: uncomplicated Qualified Code(s): F10.230 - Alcohol dependence with withdrawal, uncomplicated (3) Cocaine dependence Status: Acute (4) Substance induced mood disorder Status: Acute (5) Substance-induced sleep disorder Status: Acute (6) Cannabis dependence Status: Chronic (7) Insomnia Status: Chronic (8) Nicotine dependence Status: Chronic Qualifiers: Nicotine product type: cigarettes Substance use status: uncomplicated Qualified Code(s): F17.210 - Nicotine dependence, cigarettes, uncomplicated (9) PTSD (post-traumatic stress disorder) Status: Chronic - AMA Did Patient Leave Against Medical Advice: No
== END 2019-10-13 09:40 | disposition home or self-care (01) | DRG 774 ==
LOC: YASAS 08:39 → Y6N 10:29
PROVIDERS: ADMIT Allergy & Immunology; ATTEND Allergy & Immunology
PROC: HZ2ZZZZ Detoxification Services for Substance Abuse Treatment (ICD-10-PCS; principal; 2019-10-08)
DX: F10.230 Alcohol dependence with withdrawal, uncomplicated (principal); F14.20 Cocaine dependence, uncomplicated; F17.210 Nicotine dependence, cigarettes, uncomplicated; F32.9 Major depressive disorder, single episode, unspecified; F19.24 Other psychoactive substance dependence with psychoactive substance-induced mood disorder; F19.282 Other psychoactive substance dependence with psychoactive substance-induced sleep disorder; F43.10 Post-traumatic stress disorder, unspecified; G47.00 Insomnia, unspecified; E66.9 Obesity, unspecified; Z68.32 Body mass index [BMI] 32.0-32.9, adult; Z91.5 Personal history of self-harm; Z62.810 Personal history of physical and sexual abuse in childhood; Z59.0 Homelessness
CPT/HCPCS: 36415; 80053; 83036; 85027; 86780; Q0162; U0003

== ENCOUNTER 2019-11-29 10:25 | Inpatient (IN) | payer OTHER ==
--- OUTSIDE RECORDS SUMMARY | 2019-11-29 10:29 | XMS ---
:1960 Author Organization [facility] Care Team Providers Name Role Phone MD CELINA Unavailable Unavailable Julia Saxena MD Unavailable Unavailable Julia Saxena MD Unavailable Unavailable Julia Saxena MD Unavailable Unavailable Re-disclosure Warning The records that you are about to access may contain information from federally- assisted alcohol or drug abuse programs. If such information is present, then the following federally mandated warning applies: This information has been disclosed to you from records protected by federal confidentiality rules (42 CFR part 2). The federal rules prohibit you from making any further disclosure of this information unless further disclosure is expressly permitted by the written consent of the person to whom it pertains or as otherwise permitted by 42 CFR part 2. A general authorization for the release of medical or other information is NOT sufficient for this purpose. The Federal rules restrict any use of the information to criminally investigate or prosecute any alcohol or drug abuse patient.The records that you are about to access may contain highly sensitive health information, the redisclosure of which is protected by Article 27-F of the [facility] Public Health law. If you continue you may haveaccess to information: Regarding HIV / AIDS; Provided by facilities licensed or operated by the [facility] Office of Mental Health; or Provided by the [facility] Office for People With Developmental Disabilities. If such information is present, then the following [facility] mandated warning applies: This information has been disclosed to you from confidential records which are protected by state law. State law prohibits you from making any further disclosure of this information without the specific written consent of the person to whom it pertains, or as otherwise permitted by law. Any unauthorized further disclosure in violation of state law may result in a fine or assisted sentence or both. A general authorization for the release of medical or other information is NOT sufficient authorization for further disclosure. Encounters Encounter Providers Location Date Indications Data Source(s ) Emergency Attender: Julia 07/15/2018 [facility] MDAttender: 09:47:00 PM EDT [facility] ERAdmitter: - 07/16/2018 [place] Julia Saxena MD 12:03:00 AM EDT Patient discharged. Outpatient 10/02/2017 02:57:00 PM EDT [facility] Outpatient 10/02/2017 12:00:00 AM EDT [place] [facility] Medications Medication Brand Start Product Dose Route Administrative Pharmacy [facility] Indications Reaction Description Data Name Date Form Instructions Instructions Source(s) Prednisone predni 07/15/ [facility] ce 20 MG Oral SONE 2018 See Instructions, # 11 tab, 0 Refill(s), Day 1 take 3 tabs. Days 2-5 take 2 tabs daily. with food or milk, Pharmacy: [facility]itia rose [place], Day 1 take 3 tabs. Days 2-5 take 2 tabs daily. with food or milk Health - Tablet 20 mg 11:41: [place] predniSONE oral 00 PM Hospital 20 mg oral tablet EDT Center tablet Vistaril [id number] 07/15/ Capsule 50.0 Oral Nuva nce 2019 mg 50 mg, Oral, QHS, In [facility] - 11:30: [place] 00 PM Hospital EDT Center Insurance Providers Payer name Policy type Policy ID Covered Covered alliance party's Policy P jodee / Coverage alliance party ID relationship to [employer] Inf ormation type escobar [facility] [id number] STRGY-AFF MEDICAID [id number] SP [id number] SELF PAY SP INSURANCE [employer] [id number] Self [id number] Results ID Date Data Source [id number] 10/08/2019 10:40:00 AM EDT [facility] Name Value Range Interpretation Description Data Sup porting Code Source(s) Document(s ) SARS [facility] coronavirus 2 RNA This lab was ordered by [facility] ct Bill Inter and reported by [facility]. ID Date Data Source [id number] 07/15/2018 11:28:00 PM EDT [facility] Name Value Range Interpretation Description Data Sup porting Code Source(s) Document(s ) Troponin- <0.01 0.02-0.05 [place] I ng/mL [facility] ID Date Data Source [id number] 07/15/2018 11:24:00 PM EDT [facility] Name Value Range Interpretation Description Data Sup porting Code Source(s) Document(s ) Glucose Lvl 163 65-99 [place] mg/dL [facility] BUN 14.0 7.0-21.0 [place] mg/dL [facility] Creatinine 1.18 0.70-1.2 NO [place] mg/dL 0 [facility] BUN/Creat 11.9 7.0-29.0 NO [place] Ratio ratio [facility] Sodium Lvl 140 136-146 NO [place] mmol/L [facility] Potassium Lvl 4.4 3.5-5.1 [place] mmol/L [facility] Chloride 108 98-109 [place] mmol/L [facility] CO2 22 17-33 [place] mmol/L [facility] AGAP 10 5-15 NO [facility] Calcium Lvl 9.5 8.3-10.2 [place] mg/dL [facility] Total Protein 7.6 6.0-8.3 NO [place] gm/dL [facility] Albumin Lvl 4.3 3.7-5.3 [place] gm/dL [facility] Glob 3.3 2.0-4.5 NO [place] gm/dL [facility] A/G Ratio 1.3 1.0-2.2 NO [place] ratio [facility] Bili Total 0.3 0.4-1.1 [place] mg/dL [facility] Alk Phos 82 IU/L 30-125 [facility] AST 28 IU/L 10-35 [facility] ALT 27 IU/L 8-40 [facility] ID Date Data Source [id number] 07/15/2018 11:24:00 PM EDT [facility] Name Value Range Interpretation Code Description Data Josefina rce(s) Supporting Document(s ) eGFR-AA >60 >=[address] [facility] mL/min/[address] [place] [address] Added by Discern Rule GLB_ADD_GFR_CMP eGFR-ROME >60 mL/min/1.73m2 >=60 NO [facility] Added by Discern Rule GLB_ADD_GFR_CMP ID Date Data Source [id number] 07/15/2018 10:42:00 PM EDT [facility] Name Value Range Interpretation Description Data Sup porting Code Source(s) Document(s ) WBC 5.5 4.5-11.0 NO [place] x10(3)/[facility] RBC 4.71 4.50-5.90 [place] x10(6)/[facility] Hgb 14.2 13.5-17.5 [place] gm/dL [facility] Hct 42.2 % 41.0-53.0 NO [facility] MCV 90 fL 80-100 [facility] MCH 30.0 pg 26.0-34.0 [facility] MCHC 33.6 31.0-37.0 [place] gm/dL [facility] RDW 13.7 % 11.5-14.5 [facility] Platelet 207 150-350 [facility] MPV 8.2 fL 7.4-10.4 [facility] ID Date Data Source [id number] 07/15/2018 10:42:00 PM EDT [facility] Name Value Range Interpretation Description Data Sup porting Code Source(s) Document(s ) Neut Auto 83.2 % 40.0-70.0 [facility] Lymph Auto 11.3 % 22.0-44.0 [facility] [place] Auto 3.3 % 4.0-11.0 [facility] Eos Auto 1.7 % 0.0-8.0 [facility] Baso Auto 0.5 % 0.0-3.0 [facility] Neut 4.5 1.8-7.7 NO [place] Absolute x10(3)/[facility] Lymph 0.6 1.0-4.8 [place] Absolute x10(3)/[facility] [place] 0.2 0.2-1.2 NO [place] Absolute x10(3)/[facility] Eos Absolute 0.1 0.0-0.9 NO [place] x10(3)/[facility] Baso 0.0 0.0-0.3 NO [place] Absolute x10(3)/[facility] Procedure Social History Code Duration Value Status Description Data Source(s ) Smoking 07/15/2018 Ex-smoker completed Ex-smoker (finding) [facility] - 10:45:13 PM EDT (finding) [facility] Vital Signs ID Date Data Source UNK Name Value Range Interpretation Code Description Data Source(s) Respiratory rate 18 br/min 14-20 Normal (applies to 18 br/min [facility] br/min non-numeric results) - [facility] Oxygen saturation 95 % 94-100 % Normal (applies to 95 % [facility] in Blood non-numeric results) - [facility] by Hospital Pulse oximetry Center Diastolic blood 97 mm[Hg] 60-90 mmHg 97 mm[Hg] [facility] ealt pressure [facility] Systolic blood 152 mm[Hg] 90-130 mmHg Above high normal 152 mm[Hg] [facility] pressure [facility] Heart rate 95 bpm 60-100 bpm Normal (applies to 95 bpm [facility] e Health non-numeric results) - [facility] Oxygen therapy [facility] [Minimum Data - [facility] Center Oxygen saturation 97 % 94-100 % Normal (applies to 97 % [facility] in Blood non-numeric results) - [facility] Postductal by [facility] Pulse oximetry Center Heart rate 102 bpm 60-100 bpm Above high normal 102 bpm [facility] Heart rate 91 bpm 60-100 bpm Normal (applies to 91 bpm [facility] non-numeric results) - [facility] Respiratory rate 22 br/min 14-20 Above high normal 22 br/min [facility] br/min - [facility] Mean blood 103 mm[Hg] 103 mm[Hg] [facility] pressure by - [facility] Oxygen saturation 99 % 94-100 % Normal (applies to 99 % [facility] in Blood non-numeric results) - [facility]ductal by [facility] Pulse oximetry Center Diastolic blood 89 mm[Hg] 60-90 mmHg Normal (applies to 89 mm[Hg] [facility] pressure non-numeric results) - [facility] Systolic blood 131 mm[Hg] 90-130 mmHg Above high normal 131 mm[Hg] [facility] Oxygen therapy [facility] [Minimum Data - [facility]] [facility] Body mass index 33.01 kg/m2 33.01 kg/m2 [facility] (BMI) [Ratio] - [facility] Body weight 95.4 kg 95.4 kg [facility] Measured [facility] Body mass index 33.01 kg/m2 33.01 kg/m2 [facility] (BMI) [Ratio] [facility] Body height 170 cm 170 cm [facility] Respiratory rate 20 br/min 14-20 Normal (applies to 20 br/min [facility] br/min non-numeric results) - [facility] Diastolic blood 85 mm[Hg] 60-90 mmHg Normal (applies to 85 mm[Hg] [facility] pressure non-numeric results) - [facility] Systolic blood 149 mm[Hg] 90-130 mmHg Above high normal 149 mm[Hg] [facility] Oral temperature 98.2 [degF] 96.4-99.1 Normal (applies to 98.2 [degF ] [facility] DegF non-numeric results) - [facility] Patient Treatment Plan of Care Planned Activity Planned Date Details Description Data Source (s) No data available for [facility] - this section [facility] Prednisone 20 MG Oral 07/15/2018 11:41:00 [facility] - Tablet PM EDT [facility] Vistaril 07/15/2018 11:30:00 [facility] - PM [facility]
--- NOTE | 2019-11-29 10:37 | BHS.RME ---
Substance Use & Tx History - Substance Use History Alcohol Substance amount: 1 pint of vodka,gin,brisa/1 case of 16 ozs of beer Frequency of use: Daily Substance route: Oral Date of Last Use: 11/29/19 - Last Treatment Date of last treatment: [facility] 10/08/19 to 10/13/19 Where was last treatment: Detox Physical/Psych/Mental Status - Behavior Eye Contact: Normal - Cooperativeness Cooperativeness: Cooperative - Thinking Thought Processes: Logical Thought content: Future oriented - Physical Health Problems Is patient presently having any pain?: No Does patient presently have any injuries (include location): No Does patient currently have a fever: No CIWA Nausea/Vomitin Muscle Tremors: 3 Anxiety: 3 Agitation: 3 Paroxysmal Sweats: 1-Minimal Palms Moist Orientation: 0-Oriented Tacttile Disturbances: 1-Very Mild Itch/Numbness Auditory Disturbances: 0-None Visual Disturbances: 0-None Headache: 2-Mild CIWA-Ar Total Score: 15
--- NOTE | 2019-11-29 10:42 | HP ---
CIWA Score Nausea/Vomitin Muscle Tremors: 3 Anxiety: 3 Agitation: 3 Paroxysmal Sweats: 1-Minimal Palms Moist Orientation: 0-Oriented Tacttile Disturbances: 1-Very Mild Itch/Numbness Auditory Disturbances: 0-None Visual Disturbances: 0-None Headache: 2-Mild CIWA-Ar Total Score: 15 - Admission Criteria OASAS Guidelines: Admission for Medically Managed Detox: Requires at least one of the followin. CIWA greater than 12 2. Seizures within the past 24 hours 3. Delirium tremens within the past 24 hours 4. Hallucinations within the past 24 hours 5. Acute intervention needed for co occurring medical disorder 6. Acute intervention needed for co occurring psychiatric disorder 7. Severe withdrawal that cannot be handled at a lower level of care (continued vomiting, continued diarrhea, abnormal vital signs) requiring intravenous medication and/or fluids 8. Admitting History and Physical - Admission Chief Complaint: i need help to stop drinking alcohol History of Present Illness: this 59 years old male with alcohol dependence seeking detox,withdrawal symptom History Source: Patient Limitations to Obtaining History: No Limitations - Past Medical History Pulmonary: Yes: Asthma, Bronchitis - Past Surgical History Past Surgical History: Yes: None - Smoking History Smoking history: Current every day smoker Have you smoked in the past 12 months: Yes Aproximately how many cigarettes per day: 3 - Alcohol/Substance Use Hx Alcohol Use: Yes (1/5 vodka every other day and beers daily 6 pack) Number of Drinks Daily: 10 History of Substance Use: reports: None Date of Last Use: 11/29/19 - Social History Usual Living Arrangement: Yes: Other (living with sister) Do you think of yourself as: Straight/Heterosexual ADL: Independent 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 History of Recent Travel: Yes Other Social History: no legal issue Admission [facility] Chief Complaint: i need help to stop drinking alcohol Allergies/Adverse Reactions: Allergies Allergy/AdvReac Type Severity Reaction Status Date / Time No Known Allergies Allergy Verified 11/29/19 11:01 History of Present Illness: this 59 years old male with alcohol dependence seeking detox,withdrawal symptom, multiple admissions in detox,last [facility] 10/08/19 to 10/13/19 relapsed 1 week aftrer discharge denied seizure syncope history of asthma,bronchitis anxiety,depression,insomnia,ptsd no med no significant period of sobriety Exam Limitations: No Limitations - Ebola screening Have you traveled outside of the country in the last 21 days: No Have you had contact with anyone from an Ebola affected area: No Have you been sick,other than usual withdrawal symptoms: No Do you have a fever: No - Review of Systems Constitutional: Malaise, Night Sweats, Weakness EENT: reports: Nose Congestion Respiratory: reports: Other (asthma,bronchitis) Cardiac: reports: No Symptoms Reported GI: reports: No Symptoms Reported : reports: No Symptoms Reported Musculoskeletal: reports: Back Pain, Muscle Pain Integumentary: reports: Dryness Neuro: reports: Headache, Tremors Endocrine: reports: No Symptoms Reported Hematology: reports: No Symptoms Reported Psychiatric: reports: No Sypmtoms Reported, Judgement Intact, Mood/Affect Appropiate, Orientated x3, Anxious Other Systems: Reviewed and Negative Patient History - Patient Medical History Hx Anemia: No Hx Asthma: Yes (bronchitis) Hx Chronic Obstructive Pulmonary Disease (COPD): No Hx Cancer: No Hx Cardiac Disorders: No Hx Hypertension: No Hx Hypercholesterolemia: No Hx Pacemaker: No Hx Seizures: No Hx Diabetes: No Hx Gastrointestinal Disorders: No Hx Liver Disease: Yes Hx Genitourinary Disorders: No Hx Sexually Transmitted Disorders: No Hx Renal Disease (ESRD): No Hx Thyroid Disease: No Hx Human Immunodeficiency Virus (HIV): No Hx Hepatitis C: No Hx Depression: Yes (anxiety,insomnia,ptsd) Hx Suicide Attempt: Yes (suicidal attempted x3, last attempted in 1991) Hx Bipolar Disorder: No Hx Schizophrenia: No Other Medical History: no suicidal,no homicidal - Patient Surgical History Past Surgical History: Yes Hx Neurologic Surgery: No Hx Cataract Extraction: No Hx Cardiac Surgery: No Hx Lung Surgery: No Hx Breast Surgery: No Hx Breast Biopsy: No Hx Abdominal Surgery: No Hx Appendectomy: No Hx Cholecystectomy: No Hx Genitourinary Surgery: No Hx Section: No Hx Orthopedic Surgery: Yes (right knee sx in 2005) Other Surgical History: right middle and small finger sx in 1989 Anesthesia Reaction: No - PPD History Documented Results: Positive w/proof Implanted On Prior [facility] Admission?: No Date: 01/21/19 Results: cxr(neg) - Smoking Cessation Smoking history: Current every day smoker Have you smoked in the past 12 months: Yes Aproximately how many cigarettes per day: 3 Hx Chewing Tobacco Use: No Initiated information on smoking cessation: Yes 'Breaking Loose' booklet given: 11/29/19 - Substance & Tx. History Hx Alcohol Use: Yes Hx Substance Use: No Substance Use Type: Alcohol Hx Substance Use Treatment: Yes ([facility] 10/08/19 to 10/13/19) - Substances abused Alcohol Substance route: Oral Frequency: Daily Amount used: 1 pint of gin,vodka,brisa/1 case of 16 ozs of beer Age of first use: 12 Date of last use: 11/29/19 Admission Physical Exam [facility] - Vital Signs Vital Signs: bp 127/88 p88 r18 t 98 nela 0.000 pulse oximeter 99% - Physical General Appearance: Yes: Moderate Distress, Tremorous, Irritable, Sweating, Anxious HEENTM: Yes: MARK, Pharynx Normal Respiratory: Yes: Lungs Clear, Normal Breath Sounds, No Respiratory Distress Neck: Yes: Within Normal Limits, Supple, Trachea in good position Breast: Yes: Within Normal Limits Cardiology: Yes: Within Normal Limits, Regular Rhythm, Regular Rate, Diastolic Murmur Abdominal: Yes: Normal Bowel Sounds, Non Tender, Soft Genitourinary: Yes: Within Normal Limits Back: Yes: Muscle Spasm Extremities: Yes: Within Normal Limits (scar of right knee defority of right middle and little finger unable to do flexion form previous injury cut tendons), Normal Range of Motion, Tremors Neurological: Yes: 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 officer II-XII NML intact, Fully Oriented, Alert, Motor Strength 5/5 Integumentary: Yes: Dry Lymphatic: Yes: Within Normal Limits - Diagnostic (1) Alcohol dependence with withdrawal Current Visit: No Status: Chronic Qualifiers: Complication of substance-induced condition: uncomplicated Qualified Code(s): F10.230 - Alcohol dependence with withdrawal, uncomplicated (2) Major depressive disorder Current Visit: No Status: Active (3) Nicotine dependence Current Visit: No Status: Chronic Qualifiers: Nicotine product type: cigarettes Substance use status: uncomplicated Qualified Code(s): F17.210 - Nicotine dependence, cigarettes, uncomplicated (4) PTSD (post-traumatic stress disorder) Current Visit: No Status: Chronic (5) Positive PPD Current Visit: Yes Status: Acute (6) Deformity of finger Current Visit: Yes Status: Acute Cleared for Admission [facility] - Detox or Rehab [facility] Level of Care: Medically Managed Detox Regimen/Protocol: Librium Breathalyzer - Breathalyzer Breathalyzer: 0.049 Urine Drug Screen - Test Device Lot number: [id number] Expiration date: 10/05/21 - Control Is test valid?: Yes - Results Drug screen NEGATIVE: Yes Urine drug screen results: JOE-Cocaine Inpatient Rehab Admission - Rehab Decision to Admit Inpatient rehab admission?: No
[2019-11-29] MEDS ORDERED: ACETAMINOPHEN 325 MG TABLET (FP) PO PRN ×2 (11:02)
[2019-11-29] MEDS ORDERED: MENTHOL/PHENOL 1 EACH UD MM PRN (11:02)
[2019-11-29] MEDS ORDERED: IBUPROFEN 400 MG TABLET (FP) PO PRN (11:02)
[2019-11-29] MEDS ORDERED: MAGNESIUM CITRATE 300 ML BOTTLE PO PRN (11:02)
[2019-11-29] MEDS ORDERED: MAGNESIUM HYDROX 2400MG/30ML ORAL SUSPENSION 30 ML CUP PO PRN (11:02)
[2019-11-29] MEDS ORDERED: BISMUTH SUBSALICYLATE 262 MG/15 ML BTL PO PRN (11:02)
[2019-11-29] MEDS ORDERED: MAG HYDROX/AL HYDROX/SIMETH 30 ML UNIT-DOSE CUP PO PRN (11:02)
[2019-11-29] MEDS ORDERED: ONDANSETRON *ODT* 4 MG TABLET SL PRN (11:02)
[2019-11-29] MEDS ORDERED: NICOTINE POLACRILEX 2 MG GUM BUC PRN (11:02)
[2019-11-29] MEDS ORDERED: chlordiazePOXIDE HCL 25 MG CAPSULE PO PRN (11:02)
[2019-11-29 11:08] VITALS: BMI 34.5
--- OUTSIDE RECORDS SUMMARY | 2019-11-29 11:31 | XMS ---
:1960 Author Organization [facility] Care Team Providers Name Role Phone [...] is protected by Article 27-F of the [facility] Public Health law. If you continue you may haveaccess to information: Regarding HIV / AIDS; Provided by facilities licensed or operated by the [facility] Office of Mental Health; or Provided by the [facility] Office for People With Developmental Disabilities. If such information is present, then the following [facility] mandated warning applies: This information has [...] law may result in a fine or residential sentence or both. A general authorization for the release of medical or other information is NOT sufficient authorization for further disclosure. Encounters Encounter Providers Location Date Indications Data Source(s ) Emergency Attender: Julia 07/15/2018 [facility] MDAttender: 09:47:00 PM EDT [facility] ERAdmitter: - 07/16/2018 [place] Julia Saxena MD 12:03:00 AM EDT Patient discharged. Outpatient 10/02/2017 02:57:00 PM EDT [facility] 10/02/2017 12:00:00 AM EDT [facility] Medications Medication Brand Start Product Dose Route Administrative Pharmacy [facility] Indications Reaction Description Data Name Date Form Instructions Instructions Source(s) Prednisone predni 07/15/ [facility] ce 20 MG Oral SONE 2018 See Instructions, # 11 tab, 0 Refill(s), Day 1 take 3 tabs. Days 2-5 take 2 tabs daily. with food or milk, Pharmacy: [facility], Day 1 take 3 tabs. Days 2-5 take 2 tabs daily. with food or milk Health - Tablet 20 mg 11:41: [place] predniSONE oral 00 PM Hospital 20 mg oral tablet EDT Center tablet Vistaril [id number] 07/15/ Capsule 50.0 Oral Nuva nce 2019 mg 50 mg, Oral, QHS, In [facility] - 11:30: [place] 00 PM Hospital EDT Center Insurance Providers Payer name Policy type Policy ID Covered Covered alliance party's Policy P jodee / Coverage alliance party ID relationship to Escobar Inf ormation type escobar [facility] [id number] STRGY-AFF MEDICAID [id number] SP [id number] SELF PAY SP INSURANCE [place] [id number] Self [id number] Results ID Date Data Source [id number] 10/08/2019 10:40:00 AM EDT [facility] Name Value Range Interpretation Description Data Sup porting Code Source(s) Document(s ) SARS [facility] coronavirus 2 RNA This lab was ordered by [facility] ct Bill Inter and reported by [facility]. ID Date Data Source [id number] 07/15/2018 11:28:00 PM EDT [facility] Name Value Range Interpretation Description Data Sup porting Code Source(s) Document(s ) Troponin- <0.01 0.02-0.05 [place] I ng/mL [facility] ID Date Data Source [id number] 07/15/2018 11:24:00 PM EDT [facility] Name Value Range Interpretation Description Data Sup porting Code Source(s) Document(s ) Glucose Lvl 163 65-99 [place] mg/dL [facility] BUN 14.0 7.0-21.0 NO [place] mg/dL [facility] Creatinine 1.18 0.70-1.2 NO [place] mg/dL 0 [facility] BUN/Creat 11.9 7.0-29.0 NO [place] Ratio ratio [facility] Sodium Lvl 140 136-146 NO [place] mmol/L [facility] Potassium Lvl 4.4 3.5-5.1 [place] mmol/L [facility] Chloride 108 98-109 [place] mmol/L [facility] CO2 22 17-33 [place] mmol/L [facility] AGAP 10 5-15 NO [facility] Calcium Lvl 9.5 8.3-10.2 [place] mg/dL [facility] Total Protein 7.6 6.0-8.3 [place] gm/dL [facility] Albumin Lvl 4.3 3.7-5.3 [place] gm/dL [facility] Glob 3.3 2.0-4.5 [place] gm/dL [facility] A/G Ratio 1.3 1.0-2.2 [place] ratio [facility] Bili Total 0.3 0.4-1.1 [place] mg/dL [facility] Alk Phos 82 IU/L 30-125 NO [facility] AST 28 IU/L 10-35 NO [facility] ALT 27 IU/L 8-40 NO [facility] ID Date Data Source [id number] 07/15/2018 11:24:00 PM EDT [facility] Name Value Range Interpretation Code Description Data Josefina rce(s) Supporting Document(s ) eGFR-AA >60 >=60 NO [facility] mL/min/[address] [place] [address] Added by Discern Rule GLB_ADD_GFR_CMP eGFR-ROME >60 mL/min/1.73m2 >=60 NO [facility] Added by Discern Rule GLB_ADD_GFR_CMP ID Date Data Source [id number] 07/15/2018 10:42:00 PM EDT [facility] Name Value Range Interpretation Description Data Sup porting Code Source(s) Document(s ) WBC 5.5 4.5-11.0 NO [place] x10(3)/[facility] RBC 4.71 4.50-5.90 [place] x10(6)/[facility] Hgb 14.2 13.5-17.5 [place] gm/dL [facility] Hct 42.2 % 41.0-53.0 NO [facility] MCV 90 fL 80-100 [facility] MCH 30.0 pg 26.0-34.0 [facility] MCHC 33.6 31.0-37.0 [place] gm/dL [facility] RDW 13.7 % 11.5-14.5 [facility] Platelet 207 150-[address] MPV 8.2 fL 7.4-10.4 NO [facility] ID Date Data Source [id number] 07/15/2018 10:42:00 PM EDT [facility] Name Value Range Interpretation Description Data Sup porting Code Source(s) Document(s ) Neut Auto 83.2 % 40.0-70.0 [facility] Lymph Auto 11.3 % 22.0-44.0 LO [facility] [place] Mix Auto 3.3 % 4.0-11.0 LO [facility] Eos Auto 1.7 % 0.0-8.0 NO [facility] Baso Auto 0.5 % 0.0-3.0 NO [facility] Neut 4.5 1.8-7.7 NO [place] Absolute x10(3)/[facility] Lymph 0.6 1.0-4.8 LO [place] Absolute x10(3)/[facility] Charles Mix 0.2 0.2-1.2 NO [place] Absolute x10(3)/[facility] Eos Absolute 0.1 0.0-0.9 NO [place] x10(3)/[facility] Baso 0.0 0.0-0.3 NO [place] Absolute x10(3)/[facility] Procedure Social History Code Duration Value Status Description Data Source(s ) Smoking 07/15/2018 Ex-smoker completed Ex-smoker (finding) [facility] - 10:45:13 PM EDT (finding) [facility] Vital Signs ID Date Data Source UNK Name Value Range Interpretation Code Description Data Source(s) Respiratory rate 18 br/min 14-20 Normal (applies to 18 br/min [facility] br/min non-numeric results) - [facility] Oxygen saturation 95 % 94-100 % Normal (applies to 95 % [facility] in Blood non-numeric results) - [facility] Postductal by Hospital Pulse oximetry Center Diastolic blood 97 mm[Hg] 60-90 mmHg 97 mm[Hg] [facility] ealt pressure [facility] Systolic blood 152 mm[Hg] 90-130 mmHg Above high normal 152 mm[Hg] [facility] pressure [facility] Heart rate 95 bpm 60-100 bpm Normal (applies to 95 bpm [facility] e Health non-numeric results) - [facility] Oxygen therapy [facility] [Minimum Data - [facility]] Hospital Center Oxygen saturation 97 % 94-100 % Normal (applies to 97 % [facility] in Blood non-numeric results) - [facility] Postductal by [facility] Pulse oximetry Center Heart rate 102 bpm 60-100 bpm Above high normal 102 bpm [facility] Heart rate 91 bpm 60-100 bpm Normal (applies to 91 bpm [facility] non-numeric results) - [facility] Respiratory rate 22 br/min 14-20 Above high normal 22 br/min N [facility] br/min - [facility] Mean blood 103 mm[Hg] 103 mm[Hg] [facility] pressure by - [facility] Oxygen saturation 99 % 94-100 % Normal (applies to 99 % [facility] in Blood non-numeric results) - [facility] Postductal by [facility] Pulse oximetry Center Diastolic blood 89 mm[Hg] 60-90 mmHg Normal (applies to 89 mm[Hg] N [facility] [employer] pressure non-numeric results) - [facility] Systolic blood 131 mm[Hg] 90-130 mmHg Above high normal 131 mm[Hg] [facility] Oxygen therapy [facility] [Minimum Data - [facility]] [facility] Body mass index 33.01 kg/m2 33.01 kg/m2 [facility] (BMI) [Ratio] - [facility] Body weight 95.4 kg 95.4 kg [facility] Measured [facility] Body mass index 33.01 kg/m2 33.01 kg/m2 [facility] (BMI) [Ratio] [facility] Body height 170 cm 170 cm [facility] Respiratory rate 20 br/min 14-20 Normal (applies to 20 br/min [facility] br/min non-numeric results) - [facility] Diastolic blood 85 mm[Hg] 60-90 mmHg Normal (applies to 85 mm[Hg] N [facility] [employer] pressure non-numeric results) - [facility] Systolic blood 149 mm[Hg] 90-130 mmHg Above high normal 149 mm[Hg] [facility] Oral temperature 98.2 [degF] 96.4-99.1 Normal (applies to 98.2 [degF ] [facility] [employer] DegF non-numeric results) - [facility] Patient Treatment Plan of Care Planned Activity Planned Date Details Description Data Source (s) No data available for [facility] - this section [facility] Prednisone 20 MG Oral 07/15/2018 11:41:00 [facility] - Tablet PM EDT [facility] Vistaril 07/15/2018 11:30:00 [facility] - PM [facility]
[2019-11-29] MEDS ORDERED: ALBUTEROL SO4 HFA INHALER IH PRN (11:37)
[2019-11-29] MEDS: METHOCARBAMOL 500 MG TABLET PO PRN (12:28)
[2019-11-29] MEDS: hydrOXYzine PAMOATE 25 MG CAPSULE (FP) PO SCH ×3 (13:49→22:59)
[2019-11-29] MEDS: chlordiazePOXIDE HCL 25 MG CAPSULE PO SCH ×2 (18:07→22:59)
[2019-11-29] MEDS: MELATONIN 5 MG TABLETS PO SCH (22:59)
[2019-11-29] MEDS: THIAMINE HCL 100 MG TABLET (FP) PO SCH (22:59)
[2019-11-30] MEDS: chlordiazePOXIDE HCL 25 MG CAPSULE PO SCH ×4 (07:58→22:53)
[2019-11-30] MEDS: hydrOXYzine PAMOATE 25 MG CAPSULE (FP) PO SCH ×5 (07:58→22:53)
--- NOTE | 2019-11-30 10:18 | PN ---
S CIWA - CIWA Score Nausea/Vomitin-Mild Nausea/No Vomiting Muscle Tremors: 2 Anxiety: 3 Agitation: 1-Slight > Activity Paroxysmal Sweats: No Perspiration Orientation: 1-Uncertain about Date Tacttile Disturbances: 0-None Auditory Disturbances: 0-None Visual Disturbances: 2-Mild Sensitivity Headache: 2-Mild CIWA-Ar Total Score: 12 [facility] Progress Note (SOAP) Subjective: 59 years old male was admitted on 11/29/19 for alcohol withdrawal sx management treating with librium detox regiment body aches muscle cramping tylenal 650mg po x 1 roboxin 750mg po x 1 Objective: 11/30/19 10:17 Vital Signs - 24 hr 11/29/19 11/29/19 11/29/19 11:07 11:34 12:47 Temperature 98.0 F 97.7 F Pulse Rate 88 71 Respiratory 18 18 Rate Blood Pressure 127/88 122/74 O2 Sat by Pulse 99 99 Oximetry (%) 11/29/19 11/29/19 11/30/19 18:18 20:48 06:10 Temperature 97.3 F L 97.3 F L 97.2 F L Pulse Rate 91 H 93 H 69 Respiratory 17 18 18 Rate Blood Pressure 104/65 104/72 99/61 O2 Sat by Pulse 97 99 Oximetry (%) 11/30/19 08:57 Temperature 97.4 F L Pulse Rate 77 Respiratory 19 Rate Blood Pressure 112/79 O2 Sat by Pulse 99 Oximetry (%) 11/30/19 10:17 lab pending Assessment: 11/30/19 10:17 alcohol withdrawal 11/30/19 10:17 Plan: librium regiment
[2019-11-30 10:19] LABS: HEMATOCRIT 43.8 % (35.4-49); HEMOGLOBIN 14.3 GM/dL (11.7-16.9); MCH 29.2 pg (25.7-33.7); MCHC 32.7 g/dl (32.0-35.9); MEAN CELL VOLUME 89.4 fl (80-96); MEAN PLT VOLUME 8.9 fl (7.5-11.1); PLATELET COUNT 223 K/MM3 (134-434); RDW 13.8 % (11.9-15.9); WHITE BLOOD COUNT 3.6 K/mm3 (4.0-10.0)
[2019-11-30] MEDS ORDERED: METHOCARBAMOL 750 MG TABLET PO ONE (10:30)
[2019-11-30] MEDS: PRENATAL VITAMINS W/ FOLIC ACID TABLET (FP) PO SCH (10:30)
[2019-11-30] MEDS ORDERED: ACETAMINOPHEN 325 MG TABLET (FP) PO ONE (10:30)
[2019-11-30] MEDS: METHOCARBAMOL 500 MG TABLET PO PRN (10:32)
[2019-11-30] MEDS: NICOTINE 7 MG/24 HOURS TOPICAL PATCH TD SCH (10:32)
[2019-11-30 10:34] LABS: ALBUMIN 3.5 g/dl (3.4-5.0); BILIRUBIN,TOTAL 0.4 mg/dL (0.2-1); BLOOD UREA NITROGEN 16.4 mg/dL (7-18); CALCIUM 8.9 mg/dL (8.5-10.1); CREATININE 1.1 mg/dL (0.55-1.3); POTASSIUM 4.8 mmol/L (3.5-5.1); TOT PROT 6.6 g/dl (6.4-8.2)
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
[2019-11-30] MEDS ORDERED: QUEtiapine FUMARATE 100 MG TABLET (FP) PO SCH (22:00)
[2019-11-30] MEDS: THIAMINE HCL 100 MG TABLET (FP) PO SCH (22:53)
[2019-11-30] MEDS: MELATONIN 5 MG TABLETS PO SCH (22:53)
[2019-12-01] MEDS: hydrOXYzine PAMOATE 25 MG CAPSULE (FP) PO SCH ×3 (06:39→13:25)
[2019-12-01] MEDS: chlordiazePOXIDE HCL 25 MG CAPSULE PO SCH ×2 (06:39→10:22)
[2019-12-01] MEDS: PRENATAL VITAMINS W/ FOLIC ACID TABLET (FP) PO SCH (10:21)
[2019-12-01] MEDS: NICOTINE 7 MG/24 HOURS TOPICAL PATCH TD SCH (10:21)
--- NOTE | 2019-12-01 10:45 | PN ---
[facility] CIWA - CIWA Score Nausea/Vomitin-Mild Nausea/No Vomiting Muscle Tremors: 2 Anxiety: 2 Agitation: 2 Paroxysmal Sweats: No Perspiration Orientation: 0-Oriented Tacttile Disturbances: 1-Very Mild Itch/Numbness Auditory Disturbances: 0-None Visual Disturbances: 0-None Headache: 1-Very Mild CIWA-Ar Total Score: 9 S Progress Note (SOAP) Subjective: alert,irritable,anxious,interrupted sleep,tremor,aching pain Objective: 12/01/19 14:51 Vital Signs Temperature 97.1 F L 12/01/19 12:51 Pulse Rate 75 12/01/19 12:51 Respiratory Rate 18 12/01/19 12:51 Blood Pressure 99/62 12/01/19 12:51 O2 Sat by Pulse Oximetry (%) 98 12/01/19 12:51 12/01/19 14:51 Laboratory Last Values WBC 3.6 K/mm3 (4.0-10.0) L 11/30/19 07:10 RBC 4.90 M/mm3 (4.00-5.60) 11/30/19 07:10 Hgb 14.3 GM/dL (11.7-16.9) 11/30/19 07:10 Hct 43.8 % (35.4-49) 11/30/19 07:10 MCV 89.4 fl (80-96) 11/30/19 07:10 MCH 29.2 pg (25.7-33.7) 11/30/19 07:10 MCHC 32.7 g/dl (32.0-35.9) 11/30/19 07:10 RDW 13.8 % (11.9-15.9) 11/30/19 07:10 Plt Count 223 K/MM3 (134-434) 11/30/19 07:10 MPV 8.9 fl (7.5-11.1) 11/30/19 07:10 Sodium 142 mmol/L (136-145) 11/30/19 07:10 Potassium 4.8 mmol/L (3.5-5.1) 11/30/19 07:10 Chloride 110 mmol/L (98-107) H 11/30/19 07:10 Carbon Dioxide 29 mmol/L (21-32) 11/30/19 07:10 Anion Gap 3 MMOL/L (8-16) L 11/30/19 07:10 BUN 16.4 mg/dL (7-18) 11/30/19 07:10 Creatinine 1.1 mg/dL (0.55-1.3) 11/30/19 07:10 Est GFR (CKD-EPI)AfAm 84.71 11/30/19 07:10 Est GFR (CKD-EPI)NonAf 73.09 11/30/19 07:10 Random Glucose 93 mg/dL (74-106) 11/30/19 07:10 Calcium 8.9 mg/dL (8.5-10.1) 11/30/19 07:10 Total Bilirubin 0.4 mg/dL (0.2-1) 11/30/19 07:10 AST 15 U/L (15-37) 11/30/19 07:10 ALT 27 U/L (13-61) 11/30/19 07:10 Alkaline Phosphatase 99 U/L (45-117) 11/30/19 07:10 Total Protein 6.6 g/dl (6.4-8.2) 11/30/19 07:10 Albumin 3.5 g/dl (3.4-5.0) 11/30/19 07:10 Syphilis Serology Non-reactive (NONREACTIVE) 11/30/19 07:10 COVID-19 ([place]) Not detected (Not Detected) 11/29/19 14:00 Assessment: 12/01/19 14:52 withdrawal symptom Plan: continue detox librium regimen
[2019-12-01 13:02] VITALS: BP 99/62; PULSE 75; TEMP 97.1
--- NOTE | 2019-12-01 14:55 | DS ---
[facility] Detox Discharge Summary Admission Date: 11/29/19 Discharge Date: 12/01/19 - History Present History: Alcohol Dependence, Cocaine Dependence Additional Comments: alert,oriented x3 ambulation on the unit lung clear on auscultation bilaterally patient did not want to complete treatment high risks of relapsing explained,patient understood,all attempts to convince patient to stay with no avail signs release ama,the risk of leaving explained including seizure,permanent disability and ,patient understood left the unit in stable condition follow up with after care as arrangement by counselor Pertinent Past History: asthma nicotine dependence - Physical Exam Results Vital Signs: Vital Signs Temperature 97.1 F L 12/01/19 12:51 Pulse Rate 75 12/01/19 12:51 Respiratory Rate 18 12/01/19 12:51 Blood Pressure 99/62 12/01/19 12:51 O2 Sat by Pulse Oximetry (%) 98 12/01/19 12:51 Pertinent Admission Physical Exam Findings: withdrawal signs and symptom Laboratory Last Values WBC 3.6 K/mm3 (4.0-10.0) L 11/30/19 07:10 RBC 4.90 M/mm3 (4.00-5.60) 11/30/19 07:10 Hgb 14.3 GM/dL (11.7-16.9) 11/30/19 07:10 Hct 43.8 % (35.4-49) 11/30/19 07:10 MCV 89.4 fl (80-96) 11/30/19 07:10 MCH 29.2 pg (25.7-33.7) 11/30/19 07:10 MCHC 32.7 g/dl (32.0-35.9) 11/30/19 07:10 RDW 13.8 % (11.9-15.9) 11/30/19 07:10 Plt Count 223 K/MM3 (134-434) 11/30/19 07:10 MPV 8.9 fl (7.5-11.1) 11/30/19 07:10 Sodium 142 mmol/L (136-145) 11/30/19 07:10 Potassium 4.8 mmol/L (3.5-5.1) 11/30/19 07:10 Chloride 110 mmol/L (98-107) H 11/30/19 07:10 Carbon Dioxide 29 mmol/L (21-32) 11/30/19 07:10 Anion Gap 3 MMOL/L (8-16) L 11/30/19 07:10 BUN 16.4 mg/dL (7-18) 11/30/19 07:10 Creatinine 1.1 mg/dL (0.55-1.3) 11/30/19 07:10 Est GFR (CKD-EPI)AfAm 84.71 11/30/19 07:10 Est GFR (CKD-EPI)NonAf 73.09 11/30/19 07:10 Random Glucose 93 mg/dL (74-106) 11/30/19 07:10 Calcium 8.9 mg/dL (8.5-10.1) 11/30/19 07:10 Total Bilirubin 0.4 mg/dL (0.2-1) 11/30/19 07:10 AST 15 U/L (15-37) 11/30/19 07:10 ALT 27 U/L (13-61) 11/30/19 07:10 Alkaline Phosphatase 99 U/L (45-117) 11/30/19 07:10 Total Protein 6.6 g/dl (6.4-8.2) 11/30/19 07:10 Albumin 3.5 g/dl (3.4-5.0) 11/30/19 07:10 Syphilis Serology Non-reactive (NONREACTIVE) 11/30/19 07:10 COVID-19 ([facility]) Not detected (Not Detected) 11/29/19 14:00 Vital Signs Temperature 97.1 F L 12/01/19 12:51 Pulse Rate 75 12/01/19 12:51 Respiratory Rate 18 12/01/19 12:51 Blood Pressure 99/62 12/01/19 12:51 O2 Sat by Pulse Oximetry (%) 98 12/01/19 12:51 - Medication Discharge Medications: Ambulatory Orders Albuterol Sulfate Inhaler - [Ventolin Hfa Inhaler -] 2 inh PO Q4H PRN 10/08/19 - Diagnosis (1) Alcohol dependence with withdrawal Current Visit: Yes Status: Acute Qualifiers: Complication of substance-induced condition: uncomplicated Qualified Code(s): F10.230 - Alcohol dependence with withdrawal, uncomplicated (2) Major depressive disorder Current Visit: No Status: Active (3) Nicotine dependence Current Visit: Yes Status: Chronic Qualifiers: Nicotine product type: cigarettes Substance use status: uncomplicated Qualified Code(s): F17.210 - Nicotine dependence, cigarettes, uncomplicated (4) PTSD (post-traumatic stress disorder) Current Visit: Yes Status: Chronic (5) Positive PPD Current Visit: Yes Status: Acute (6) Deformity of finger Current Visit: Yes Status: Acute (7) Asthma Current Visit: Yes Status: Acute - AMA Did Patient Leave Against Medical Advice: Yes
[2019-12-02] MEDS ORDERED: chlordiazePOXIDE HCL 10 MG CAPSULE PO PRN
[2019-12-02] MEDS ORDERED: chlordiazePOXIDE HCL 10 MG CAPSULE PO SCH (05:00)
[2019-12-03] MEDS ORDERED: chlordiazePOXIDE HCL 10 MG CAPSULE PO SCH (05:00)
[2019-12-04] MEDS ORDERED: chlordiazePOXIDE HCL 10 MG CAPSULE PO ONE (05:00)
== END 2019-12-01 15:00 | disposition left against medical advice (07) | DRG 770 ==
LOC: YASAS 10:25 → Y3N 11:26
PROVIDERS: ADMIT Allergy & Immunology; ATTEND Allergy & Immunology
PROC: HZ2ZZZZ Detoxification Services for Substance Abuse Treatment (ICD-10-PCS; principal; 2019-11-29)
DX: F10.230 Alcohol dependence with withdrawal, uncomplicated (principal); F14.20 Cocaine dependence, uncomplicated; F17.210 Nicotine dependence, cigarettes, uncomplicated; F19.24 Other psychoactive substance dependence with psychoactive substance-induced mood disorder; F43.10 Post-traumatic stress disorder, unspecified; F41.9 Anxiety disorder, unspecified; F32.9 Major depressive disorder, single episode, unspecified; J45.909 Unspecified asthma, uncomplicated; B18.2 Chronic viral hepatitis C; G47.00 Insomnia, unspecified; R76.11 Nonspecific reaction to tuberculin skin test without active tuberculosis; Z62.810 Personal history of physical and sexual abuse in childhood; Z91.5 Personal history of self-harm
CPT/HCPCS: 36415; 80053; 85027; 86780; U0003

== ENCOUNTER 2021-10-22 09:12 | Inpatient (IN) | payer OTHER ==
[2021-10-22 10:20] VITALS: BMI 33.6
[2021-10-22] MEDS ORDERED: MAGNESIUM CITRATE 300 ML BOTTLE PO PRN (11:01)
[2021-10-22] MEDS ORDERED: ONDANSETRON *ODT* 4 MG TABLET SL PRN (11:01)
[2021-10-22] MEDS ORDERED: chlordiazePOXIDE HCL 25 MG CAPSULE PO PRN (11:01)
[2021-10-22] MEDS ORDERED: LOPERAMIDE HCL 2 MG CAPSULE PO PRN (11:01)
[2021-10-22] MEDS ORDERED: MAGNESIUM HYDROX 2400MG/30ML ORAL SUSPENSION 30 ML CUP PO PRN (11:01)
[2021-10-22] MEDS ORDERED: DICYCLOMINE HCL 10 MG CAPSULE PO PRN (11:01)
[2021-10-22] MEDS ORDERED: MAG HYDROX/AL HYDROX/SIMETH 30 ML UNIT-DOSE CUP PO PRN (11:01)
[2021-10-22] MEDS ORDERED: IBUPROFEN 400 MG TABLET (FP) PO PRN (11:01)
[2021-10-22] MEDS ORDERED: IBUPROFEN 600 MG TABLET (FP) PO PRN (11:01)
[2021-10-22] MEDS ORDERED: ACETAMINOPHEN 325 MG TABLET (FP) PO PRN ×2 (11:01)
[2021-10-22] MEDS ORDERED: BISMUTH SUBSALICYLATE 524 MG/30 ML PO PRN (11:01)
[2021-10-22] MEDS ORDERED: ALBUTEROL SO4 0.083% IH SOL 2.5 MG/3 ML VIAL.NEB. NEB PRN (11:51)
[2021-10-22] MEDS: ALBUTEROL SO4 HFA INHALER IH PRN ×3 (11:58→22:33)
[2021-10-22] MEDS: TIOTROPIUM BROMIDE 2.5 MCG (SPIRIVA) RESPIMAT INHALER IH SCH (11:59)
[2021-10-22] MEDS: chlordiazePOXIDE HCL 25 MG CAPSULE PO SCH ×2 (19:04→22:34)
[2021-10-22] MEDS ORDERED: MELATONIN 5 MG TABLETS PO SCH (22:00)
[2021-10-22] MEDS: THIAMINE HCL 100 MG TABLET (FP) PO SCH (22:34)
[2021-10-22] MEDS: hydrOXYzine PAMOATE 25 MG CAPSULE (FP) PO PRN (22:34)
[2021-10-23] MEDS: chlordiazePOXIDE HCL 25 MG CAPSULE PO SCH ×4 (06:27→22:47)
[2021-10-23] MEDS: ALBUTEROL SO4 HFA INHALER IH PRN (10:13)
[2021-10-23] MEDS: PRENATAL VITAMINS W/ FOLIC ACID TABLET (FP) PO SCH (10:13)
[2021-10-23] MEDS: FINASTERIDE 5 MG TABLET (FP) PO SCH (10:14)
[2021-10-23] MEDS: TIOTROPIUM BROMIDE 2.5 MCG (SPIRIVA) RESPIMAT INHALER IH SCH (10:15)
[2021-10-23] MEDS: TAMSULOSIN HCL 0.4 MG CAP PO SCH (10:17)
[2021-10-23] MEDS: SERTRALINE HCL 50 MG TABLET (FP) PO SCH (10:57)
[2021-10-23 11:59] LABS: HEMATOCRIT 41.7 % (35.4-49); HEMOGLOBIN 13.6 GM/dL (11.7-16.9); MCH 28.9 pg (25.7-33.7); MCHC 32.6 g/dl (32.0-35.9); MEAN CELL VOLUME 88.5 fl (80-96); PLATELET COUNT 219 10^3/uL (134-434); RBC 4.72 M/mm3 (4.00-5.60); RDW 14.6 % (11.9-15.9)
[2021-10-23 12:13] LABS: CALCIUM 8.8 mg/dL (8.5-10.1)
[2021-10-23 12:14] LABS: ALBUMIN 3.4 g/dl (3.4-5.0); BLOOD UREA NITROGEN 16.6 mg/dL (7-18)
[2021-10-23 12:16] LABS: CREATININE 1.1 mg/dL (0.55-1.3)
[2021-10-23 12:18] LABS: BILIRUBIN,TOTAL 0.5 mg/dL (0.2-1); TOT PROT 6.4 g/dl (6.4-8.2)
[2021-10-23] MEDS: METHOCARBAMOL 500 MG TABLET PO PRN ×2 (17:43→22:53)
[2021-10-23] MEDS: hydrOXYzine PAMOATE 25 MG CAPSULE (FP) PO PRN ×2 (17:43→22:45)
[2021-10-23] MEDS: THIAMINE HCL 100 MG TABLET (FP) PO SCH (22:45)
[2021-10-23] MEDS: QUEtiapine FUMARATE 200 MG TABLET PO SCH (22:45)
[2021-10-23] MEDS: PRAZOSIN HCL 5 MG CAPSULE PO SCH (23:43)
[2021-10-24] MEDS: chlordiazePOXIDE HCL 25 MG CAPSULE PO SCH ×4 (06:04→22:49)
[2021-10-24] MEDS: TAMSULOSIN HCL 0.4 MG CAP PO SCH (10:40)
[2021-10-24] MEDS: FINASTERIDE 5 MG TABLET (FP) PO SCH (10:40)
[2021-10-24] MEDS: hydrOXYzine PAMOATE 25 MG CAPSULE (FP) PO PRN (10:40)
[2021-10-24] MEDS: SERTRALINE HCL 50 MG TABLET (FP) PO SCH (10:40)
[2021-10-24] MEDS: METHOCARBAMOL 500 MG TABLET PO PRN (10:40)
[2021-10-24] MEDS: PRENATAL VITAMINS W/ FOLIC ACID TABLET (FP) PO SCH (10:40)
[2021-10-24] MEDS: TIOTROPIUM BROMIDE 2.5 MCG (SPIRIVA) RESPIMAT INHALER IH SCH (10:41)
[2021-10-24] MEDS: ALBUTEROL SO4 HFA INHALER IH PRN ×2 (18:12→22:48)
[2021-10-24] MEDS: THIAMINE HCL 100 MG TABLET (FP) PO SCH (22:49)
[2021-10-24] MEDS: QUEtiapine FUMARATE 200 MG TABLET PO SCH (22:49)
[2021-10-24] MEDS: PRAZOSIN HCL 5 MG CAPSULE PO SCH (22:55)
[2021-10-24] MEDS: BENZOCAINE/MENTHOL (CHLORASEPTIC ) LOZENGE MM PRN (22:58)
[2021-10-25] MEDS ORDERED: chlordiazePOXIDE HCL 10 MG CAPSULE PO PRN
[2021-10-25] MEDS: chlordiazePOXIDE HCL 10 MG CAPSULE PO SCH ×4 (07:21→22:20)
[2021-10-25] MEDS: FINASTERIDE 5 MG TABLET (FP) PO SCH (10:52)
[2021-10-25] MEDS: PRENATAL VITAMINS W/ FOLIC ACID TABLET (FP) PO SCH (10:53)
[2021-10-25] MEDS: METHOCARBAMOL 500 MG TABLET PO PRN (10:53)
[2021-10-25] MEDS: SERTRALINE HCL 50 MG TABLET (FP) PO SCH (10:53)
[2021-10-25] MEDS: TAMSULOSIN HCL 0.4 MG CAP PO SCH (10:53)
[2021-10-25] MEDS: TIOTROPIUM BROMIDE 2.5 MCG (SPIRIVA) RESPIMAT INHALER IH SCH (10:54)
[2021-10-25] MEDS: hydrOXYzine PAMOATE 25 MG CAPSULE (FP) PO PRN (22:20)
[2021-10-25] MEDS: THIAMINE HCL 100 MG TABLET (FP) PO SCH (22:21)
[2021-10-25] MEDS: QUEtiapine FUMARATE 200 MG TABLET PO SCH (22:21)
[2021-10-25] MEDS: PRAZOSIN HCL 5 MG CAPSULE PO SCH (22:21)
[2021-10-25] MEDS: BENZOCAINE/MENTHOL (CHLORASEPTIC ) LOZENGE MM PRN (22:24)
[2021-10-26] MEDS: chlordiazePOXIDE HCL 10 MG CAPSULE PO SCH ×2 (05:33→17:39)
[2021-10-26] MEDS: METHOCARBAMOL 500 MG TABLET PO PRN ×3 (05:33→17:41)
[2021-10-26] MEDS: hydrOXYzine PAMOATE 25 MG CAPSULE (FP) PO PRN ×2 (09:40→22:34)
[2021-10-26] MEDS: SERTRALINE HCL 50 MG TABLET (FP) PO SCH (09:40)
[2021-10-26] MEDS: TAMSULOSIN HCL 0.4 MG CAP PO SCH (09:40)
[2021-10-26] MEDS: PRENATAL VITAMINS W/ FOLIC ACID TABLET (FP) PO SCH (09:40)
[2021-10-26] MEDS: FINASTERIDE 5 MG TABLET (FP) PO SCH (09:41)
[2021-10-26] MEDS: TIOTROPIUM BROMIDE 2.5 MCG (SPIRIVA) RESPIMAT INHALER IH SCH (09:42)
[2021-10-26] MEDS: BENZOCAINE/MENTHOL (CHLORASEPTIC ) LOZENGE MM PRN ×2 (17:41→22:36)
[2021-10-26] MEDS: ALBUTEROL SO4 HFA INHALER IH PRN (17:43)
[2021-10-26] MEDS: THIAMINE HCL 100 MG TABLET (FP) PO SCH (22:33)
[2021-10-26] MEDS: PRAZOSIN HCL 5 MG CAPSULE PO SCH (22:33)
[2021-10-26] MEDS: QUEtiapine FUMARATE 200 MG TABLET PO SCH (22:35)
[2021-10-27] MEDS ORDERED: chlordiazePOXIDE HCL 10 MG CAPSULE PO ONE (05:00)
[2021-10-27] MEDS: hydrOXYzine PAMOATE 25 MG CAPSULE (FP) PO PRN (05:44)
[2021-10-27] MEDS: METHOCARBAMOL 500 MG TABLET PO PRN (05:46)
[2021-10-27 09:21] VITALS: BP 115/80; PULSE 79; RESP 19; TEMP 98.1
== END 2021-10-27 09:32 | disposition other institution (70) | DRG 774 ==
LOC: YASAS 09:12 → Y6N 11:06
PROVIDERS: ADMIT Allergy & Immunology; ATTEND Surgery
PROC: HZ2ZZZZ Detoxification Services for Substance Abuse Treatment (ICD-10-PCS; principal; 2021-10-22)
DX: F10.230 Alcohol dependence with withdrawal, uncomplicated (principal); F14.20 Cocaine dependence, uncomplicated; F12.20 Cannabis dependence, uncomplicated; F17.210 Nicotine dependence, cigarettes, uncomplicated; F19.282 Other psychoactive substance dependence with psychoactive substance-induced sleep disorder; F19.24 Other psychoactive substance dependence with psychoactive substance-induced mood disorder; F43.10 Post-traumatic stress disorder, unspecified; J44.9 Chronic obstructive pulmonary disease, unspecified; J45.20 Mild intermittent asthma, uncomplicated; D72.819 Decreased white blood cell count, unspecified; R73.9 Hyperglycemia, unspecified; M20.001 Unspecified deformity of right finger(s); N40.0 Benign prostatic hyperplasia without lower urinary tract symptoms; Z62.810 Personal history of physical and sexual abuse in childhood; E66.9 Obesity, unspecified; Z68.33 Body mass index [BMI] 33.0-33.9, adult; Z86.19 Personal history of other infectious and parasitic diseases
CPT/HCPCS: 36415; 80053; 82962; 85027; 86780; 93005; 93010; C9803-CS; Q0162; U0003; U0005

== ENCOUNTER 2021-10-27 10:35 | Inpatient (IN) | payer OTHER ==
[2021-10-27] MEDS ORDERED: hydrOXYzine PAMOATE 25 MG CAPSULE (FP) PO PRN (14:05)
[2021-10-27] MEDS ORDERED: P-EPHED 60MG/TRIPROLIDI 2.5MG TABLET PO PRN (14:05)
[2021-10-27] MEDS ORDERED: guaiFENesin 200 MG/10 ML 10 ML UNIT-DOSE CUPS PO PRN (14:05)
[2021-10-27] MEDS ORDERED: LOPERAMIDE HCL 2 MG CAPSULE PO PRN (14:05)
[2021-10-27] MEDS ORDERED: NICOTINE 10 MG CARTRIDGE (INHALER) IH PRN (14:05)
[2021-10-27] MEDS ORDERED: IBUPROFEN 400 MG TABLET (FP) PO PRN (14:05)
[2021-10-27] MEDS ORDERED: ACETAMINOPHEN 325 MG TABLET (FP) PO PRN (14:05)
[2021-10-27] MEDS ORDERED: MAGNESIUM HYDROX 2400MG/30ML ORAL SUSPENSION 30 ML CUP PO PRN (14:05)
[2021-10-27] MEDS ORDERED: MELATONIN 5 MG TABLETS PO PRN (14:05)
[2021-10-27] MEDS ORDERED: MAGNESIUM CITRATE 300 ML BOTTLE PO PRN (14:05)
[2021-10-27] MEDS: TAMSULOSIN HCL 0.4 MG CAP PO SCH (16:41)
[2021-10-27] MEDS: FINASTERIDE 5 MG TABLET (FP) PO SCH (16:42)
[2021-10-27] MEDS: SERTRALINE HCL 50 MG TABLET (FP) PO SCH (16:42)
[2021-10-27] MEDS: BENZOCAINE/MENTHOL (CHLORASEPTIC ) LOZENGE MM PRN (16:44)
[2021-10-27] MEDS: PRAZOSIN HCL 5 MG CAPSULE PO SCH (21:13)
[2021-10-27] MEDS: THIAMINE HCL 100 MG TABLET (FP) PO SCH (21:15)
[2021-10-27] MEDS: ALBUTEROL SO4 HFA INHALER IH PRN (21:15)
[2021-10-27] MEDS: QUEtiapine FUMARATE 200 MG TABLET PO SCH (21:15)
[2021-10-28] MEDS: TAMSULOSIN HCL 0.4 MG CAP PO SCH (10:15)
[2021-10-28] MEDS: PRENATAL VITAMINS W/ FOLIC ACID TABLET (FP) PO SCH (10:15)
[2021-10-28] MEDS: SERTRALINE HCL 50 MG TABLET (FP) PO SCH (10:15)
[2021-10-28] MEDS: FINASTERIDE 5 MG TABLET (FP) PO SCH (10:16)
[2021-10-28] MEDS: NICOTINE 7 MG/24 HOURS TOPICAL PATCH TD SCH (10:16)
[2021-10-28] MEDS: QUEtiapine FUMARATE 200 MG TABLET PO SCH (21:08)
[2021-10-28] MEDS: THIAMINE HCL 100 MG TABLET (FP) PO SCH (21:08)
[2021-10-28] MEDS: ALBUTEROL SO4 HFA INHALER IH PRN (21:08)
[2021-10-28] MEDS: BENZOCAINE/MENTHOL (CHLORASEPTIC ) LOZENGE MM PRN (21:09)
[2021-10-28] MEDS: PRAZOSIN HCL 5 MG CAPSULE PO SCH (21:10)
[2021-10-29] MEDS: ALBUTEROL SO4 HFA INHALER IH PRN (10:06)
[2021-10-29] MEDS: PRENATAL VITAMINS W/ FOLIC ACID TABLET (FP) PO SCH (10:06)
[2021-10-29] MEDS: TAMSULOSIN HCL 0.4 MG CAP PO SCH (10:08)
[2021-10-29] MEDS: SERTRALINE HCL 50 MG TABLET (FP) PO SCH (10:08)
[2021-10-29] MEDS: NICOTINE 7 MG/24 HOURS TOPICAL PATCH TD SCH (10:08)
[2021-10-29] MEDS: FINASTERIDE 5 MG TABLET (FP) PO SCH (10:08)
[2021-10-29] MEDS: PRAZOSIN HCL 5 MG CAPSULE PO SCH (21:17)
[2021-10-29] MEDS: QUEtiapine FUMARATE 200 MG TABLET PO SCH (21:17)
[2021-10-29] MEDS: THIAMINE HCL 100 MG TABLET (FP) PO SCH (21:17)
[2021-10-29] MEDS: BENZOCAINE/MENTHOL (CHLORASEPTIC ) LOZENGE MM PRN (21:18)
[2021-10-29] MEDS: MAG HYDROX/AL HYDROX/SIMETH 30 ML UNIT-DOSE CUP PO PRN (22:01)
[2021-10-30] MEDS: TAMSULOSIN HCL 0.4 MG CAP PO SCH (09:48)
[2021-10-30] MEDS: PRENATAL VITAMINS W/ FOLIC ACID TABLET (FP) PO SCH (09:48)
[2021-10-30] MEDS: NICOTINE 7 MG/24 HOURS TOPICAL PATCH TD SCH (09:48)
[2021-10-30] MEDS: FINASTERIDE 5 MG TABLET (FP) PO SCH (09:49)
[2021-10-30] MEDS: SERTRALINE HCL 50 MG TABLET (FP) PO SCH (09:49)
[2021-10-30] MEDS: MAG HYDROX/AL HYDROX/SIMETH 30 ML UNIT-DOSE CUP PO PRN (10:25)
[2021-10-30] MEDS ORDERED: FAMOTIDINE 20 MG TABLET PO ONE (13:00)
[2021-10-30] MEDS: ALBUTEROL SO4 HFA INHALER IH PRN ×2 (16:04→19:04)
[2021-10-30] MEDS: PRAZOSIN HCL 5 MG CAPSULE PO SCH (21:18)
[2021-10-30] MEDS: QUEtiapine FUMARATE 200 MG TABLET PO SCH (21:19)
[2021-10-30] MEDS: THIAMINE HCL 100 MG TABLET (FP) PO SCH (21:19)
[2021-10-30] MEDS: FAMOTIDINE 20 MG TABLET PO SCH (21:19)
[2021-10-30] MEDS: SIMETHICONE 80 MG TAB.CHEW (FP) PO PRN (21:20)
[2021-10-31] MEDS: SIMETHICONE 80 MG TAB.CHEW (FP) PO PRN (08:53)
[2021-10-31] MEDS: TAMSULOSIN HCL 0.4 MG CAP PO SCH (10:01)
[2021-10-31] MEDS: SERTRALINE HCL 50 MG TABLET (FP) PO SCH (10:01)
[2021-10-31] MEDS: PRENATAL VITAMINS W/ FOLIC ACID TABLET (FP) PO SCH (10:01)
[2021-10-31] MEDS: FAMOTIDINE 20 MG TABLET PO SCH ×2 (10:01→21:22)
[2021-10-31] MEDS: FINASTERIDE 5 MG TABLET (FP) PO SCH (10:18)
[2021-10-31] MEDS: PRAZOSIN HCL 5 MG CAPSULE PO SCH (21:22)
[2021-10-31] MEDS: THIAMINE HCL 100 MG TABLET (FP) PO SCH (21:22)
[2021-10-31] MEDS: QUEtiapine FUMARATE 200 MG TABLET PO SCH (21:22)
[2021-11-01] MEDS: SERTRALINE HCL 50 MG TABLET (FP) PO SCH (09:57)
[2021-11-01] MEDS: TAMSULOSIN HCL 0.4 MG CAP PO SCH (09:57)
[2021-11-01] MEDS: FAMOTIDINE 20 MG TABLET PO SCH ×2 (09:57→21:29)
[2021-11-01] MEDS: PRENATAL VITAMINS W/ FOLIC ACID TABLET (FP) PO SCH (09:57)
[2021-11-01] MEDS: FINASTERIDE 5 MG TABLET (FP) PO SCH (09:57)
[2021-11-01] MEDS: ALBUTEROL SO4 HFA INHALER IH PRN (11:23)
[2021-11-01] MEDS: TIOTROPIUM BROMIDE 2.5 MCG (SPIRIVA) RESPIMAT INHALER IH SCH (11:52)
[2021-11-01] MEDS: BENZOCAINE/MENTHOL (CHLORASEPTIC ) LOZENGE MM PRN (15:15)
[2021-11-01] MEDS: SIMETHICONE 80 MG TAB.CHEW (FP) PO PRN (19:09)
[2021-11-01] MEDS: PRAZOSIN HCL 5 MG CAPSULE PO SCH (21:28)
[2021-11-01] MEDS: QUEtiapine FUMARATE 200 MG TABLET PO SCH (21:29)
[2021-11-01] MEDS: THIAMINE HCL 100 MG TABLET (FP) PO SCH (21:29)
[2021-11-02] MEDS: PRENATAL VITAMINS W/ FOLIC ACID TABLET (FP) PO SCH (10:13)
[2021-11-02] MEDS: FAMOTIDINE 20 MG TABLET PO SCH ×2 (10:13→21:21)
[2021-11-02] MEDS: TAMSULOSIN HCL 0.4 MG CAP PO SCH (10:13)
[2021-11-02] MEDS: TIOTROPIUM BROMIDE 2.5 MCG (SPIRIVA) RESPIMAT INHALER IH SCH (10:14)
[2021-11-02] MEDS: FINASTERIDE 5 MG TABLET (FP) PO SCH (10:14)
[2021-11-02] MEDS: SERTRALINE HCL 50 MG TABLET (FP) PO SCH (10:14)
[2021-11-02] MEDS: MAG HYDROX/AL HYDROX/SIMETH 30 ML UNIT-DOSE CUP PO PRN (19:40)
[2021-11-02] MEDS: QUEtiapine FUMARATE 200 MG TABLET PO SCH (21:21)
[2021-11-02] MEDS: THIAMINE HCL 100 MG TABLET (FP) PO SCH (21:21)
[2021-11-02] MEDS: PRAZOSIN HCL 5 MG CAPSULE PO SCH (21:22)
[2021-11-03] MEDS: SERTRALINE HCL 50 MG TABLET (FP) PO SCH (09:59)
[2021-11-03] MEDS: FAMOTIDINE 20 MG TABLET PO SCH ×2 (09:59→21:18)
[2021-11-03] MEDS: PRENATAL VITAMINS W/ FOLIC ACID TABLET (FP) PO SCH (09:59)
[2021-11-03] MEDS: TAMSULOSIN HCL 0.4 MG CAP PO SCH (09:59)
[2021-11-03] MEDS: TIOTROPIUM BROMIDE 2.5 MCG (SPIRIVA) RESPIMAT INHALER IH SCH (10:00)
[2021-11-03] MEDS: FINASTERIDE 5 MG TABLET (FP) PO SCH (10:00)
[2021-11-03] MEDS ORDERED: methylPREDNISolone 8 MG TABLET PO ONE (13:00)
[2021-11-03] MEDS ORDERED: methylPREDNISolone 4 MG TABLET PO ONE (13:45)
[2021-11-03] MEDS: ALBUTEROL SO4 2.5/IPRATROPIUM 0.5 INH SOL 3 ML VIAL.NEB. NEB PRN (14:27)
[2021-11-03] MEDS: SIMETHICONE 80 MG TAB.CHEW (FP) PO PRN (17:05)
[2021-11-03] MEDS: PRAZOSIN HCL 5 MG CAPSULE PO SCH (21:17)
[2021-11-03] MEDS: THIAMINE HCL 100 MG TABLET (FP) PO SCH (21:18)
[2021-11-03] MEDS: QUEtiapine FUMARATE 200 MG TABLET PO SCH (21:18)
[2021-11-03] MEDS: BENZOCAINE/MENTHOL (CHLORASEPTIC ) LOZENGE MM PRN (22:30)
[2021-11-04] MEDS: TAMSULOSIN HCL 0.4 MG CAP PO SCH (09:49)
[2021-11-04] MEDS: PRENATAL VITAMINS W/ FOLIC ACID TABLET (FP) PO SCH (09:49)
[2021-11-04] MEDS: SERTRALINE HCL 50 MG TABLET (FP) PO SCH (09:49)
[2021-11-04] MEDS: FAMOTIDINE 20 MG TABLET PO SCH ×2 (09:49→21:23)
[2021-11-04] MEDS: TIOTROPIUM BROMIDE 2.5 MCG (SPIRIVA) RESPIMAT INHALER IH SCH (09:50)
[2021-11-04] MEDS: FINASTERIDE 5 MG TABLET (FP) PO SCH (09:51)
[2021-11-04] MEDS ORDERED: methylPREDNISolone 4 MG TABLET PO ONE (10:00)
[2021-11-04] MEDS: ALBUTEROL SO4 2.5/IPRATROPIUM 0.5 INH SOL 3 ML VIAL.NEB. NEB PRN (12:41)
[2021-11-04] MEDS: BENZOCAINE/MENTHOL (CHLORASEPTIC ) LOZENGE MM PRN ×2 (13:10→21:25)
[2021-11-04] MEDS: THIAMINE HCL 100 MG TABLET (FP) PO SCH (21:23)
[2021-11-04] MEDS: PRAZOSIN HCL 5 MG CAPSULE PO SCH (21:23)
[2021-11-04] MEDS: QUEtiapine FUMARATE 200 MG TABLET PO SCH (21:23)
[2021-11-05] MEDS ORDERED: methylPREDNISolone 4 MG TABLET PO ONE (10:00)
[2021-11-05] MEDS: PRENATAL VITAMINS W/ FOLIC ACID TABLET (FP) PO SCH (10:46)
[2021-11-05] MEDS: SERTRALINE HCL 50 MG TABLET (FP) PO SCH (10:47)
[2021-11-05] MEDS: TIOTROPIUM BROMIDE 2.5 MCG (SPIRIVA) RESPIMAT INHALER IH SCH (10:47)
[2021-11-05] MEDS: TAMSULOSIN HCL 0.4 MG CAP PO SCH (10:47)
[2021-11-05] MEDS: FAMOTIDINE 20 MG TABLET PO SCH ×2 (10:47→21:29)
[2021-11-05] MEDS: FINASTERIDE 5 MG TABLET (FP) PO SCH (10:48)
[2021-11-05] MEDS: BENZOCAINE/MENTHOL (CHLORASEPTIC ) LOZENGE MM PRN (10:53)
[2021-11-05] MEDS: ALBUTEROL SO4 2.5/IPRATROPIUM 0.5 INH SOL 3 ML VIAL.NEB. NEB PRN (14:55)
[2021-11-05] MEDS: QUEtiapine FUMARATE 200 MG TABLET PO SCH (21:29)
[2021-11-05] MEDS: THIAMINE HCL 100 MG TABLET (FP) PO SCH (21:29)
[2021-11-05] MEDS: PRAZOSIN HCL 5 MG CAPSULE PO SCH (21:30)
[2021-11-06 07:08] VITALS: RESP 18
[2021-11-06] MEDS ORDERED: methylPREDNISolone 4 MG TABLET PO ONE (10:00)
[2021-11-06] MEDS: SERTRALINE HCL 50 MG TABLET (FP) PO SCH (10:07)
[2021-11-06] MEDS: FAMOTIDINE 20 MG TABLET PO SCH ×2 (10:08→21:18)
[2021-11-06] MEDS: TAMSULOSIN HCL 0.4 MG CAP PO SCH (10:08)
[2021-11-06] MEDS: FINASTERIDE 5 MG TABLET (FP) PO SCH (10:11)
[2021-11-06] MEDS: TIOTROPIUM BROMIDE 2.5 MCG (SPIRIVA) RESPIMAT INHALER IH SCH (10:11)
[2021-11-06] MEDS: PRENATAL VITAMINS W/ FOLIC ACID TABLET (FP) PO SCH (10:11)
[2021-11-06] MEDS: ALBUTEROL SO4 2.5/IPRATROPIUM 0.5 INH SOL 3 ML VIAL.NEB. NEB PRN (10:57)
[2021-11-06] MEDS: QUEtiapine FUMARATE 200 MG TABLET PO SCH (21:18)
[2021-11-06] MEDS: THIAMINE HCL 100 MG TABLET (FP) PO SCH (21:18)
[2021-11-06] MEDS: PRAZOSIN HCL 5 MG CAPSULE PO SCH (21:18)
[2021-11-07 07:07] VITALS: BP 112/72; PULSE 73; TEMP 97.5
[2021-11-07] MEDS ORDERED: methylPREDNISolone 4 MG TABLET PO ONE (10:00)
[2021-11-07] MEDS: ALBUTEROL SO4 HFA INHALER IH PRN (10:12)
[2021-11-07] MEDS: FAMOTIDINE 20 MG TABLET PO SCH (10:13)
[2021-11-07] MEDS: SIMETHICONE 80 MG TAB.CHEW (FP) PO PRN (10:13)
[2021-11-07] MEDS: SERTRALINE HCL 50 MG TABLET (FP) PO SCH (10:13)
[2021-11-07] MEDS: TAMSULOSIN HCL 0.4 MG CAP PO SCH (10:13)
[2021-11-07] MEDS: FINASTERIDE 5 MG TABLET (FP) PO SCH (10:14)
[2021-11-07] MEDS: PRENATAL VITAMINS W/ FOLIC ACID TABLET (FP) PO SCH (10:14)
[2021-11-07] MEDS: TIOTROPIUM BROMIDE 2.5 MCG (SPIRIVA) RESPIMAT INHALER IH SCH (10:15)
== END 2021-11-07 10:20 | disposition home or self-care (01) | DRG 772 ==
LOC: YASAS 10:35 → Y5N 10:36
PROVIDERS: ADMIT Allergy & Immunology; ATTEND Psychiatry & Neurology Psychiatry
PROC: HZ42ZZZ Group Counseling for Substance Abuse Treatment, Cognitive-Behavioral (ICD-10-PCS; principal; 2021-10-27)
DX: F10.20 Alcohol dependence, uncomplicated (principal); F14.20 Cocaine dependence, uncomplicated; F17.210 Nicotine dependence, cigarettes, uncomplicated; N40.0 Benign prostatic hyperplasia without lower urinary tract symptoms; J45.909 Unspecified asthma, uncomplicated; M20.001 Unspecified deformity of right finger(s); M54.59 Other low back pain; G89.29 Other chronic pain; E66.9 Obesity, unspecified; Z68.33 Body mass index [BMI] 33.0-33.9, adult; Z86.19 Personal history of other infectious and parasitic diseases
CPT/HCPCS: 36415; 71046-TC-FY; 82947; 94640

== ENCOUNTER 2022-04-24 14:12 | Inpatient (IN) | payer OTHER ==
[2022-04-24 15:13] VITALS: BMI 32.8
[2022-04-24] MEDS ORDERED: ONDANSETRON *ODT* 4 MG TABLET SL PRN (17:33)
[2022-04-24] MEDS ORDERED: NALOXONE HCL (KLOXXADO) 8 MG SPRAY NS PRN (17:33)
[2022-04-24] MEDS ORDERED: BENZOCAINE/MENTHOL (CHLORASEPTIC ) LOZENGE MM PRN (17:33)
[2022-04-24] MEDS ORDERED: MAGNESIUM HYDROX 2400MG/30ML ORAL SUSPENSION 30 ML CUP PO PRN (17:33)
[2022-04-24] MEDS ORDERED: POLYETHYLENE GLYCOL (HEALTHYLAX) 3350 17 GM PACKET PO PRN (17:33)
[2022-04-24] MEDS ORDERED: MAG HYDROX/AL HYDROX/SIMETH 30 ML UNIT-DOSE CUP PO PRN (17:33)
[2022-04-24] MEDS ORDERED: ACETAMINOPHEN 325 MG TABLET (FP) PO PRN ×2 (17:33)
[2022-04-24] MEDS ORDERED: LOPERAMIDE HCL 2 MG CAPSULE PO PRN (17:33)
[2022-04-24] MEDS ORDERED: NICOTINE 10 MG CARTRIDGE (INHALER) IH PRN (17:33)
[2022-04-24] MEDS ORDERED: IBUPROFEN 400 MG TABLET (FP) PO PRN (17:33)
[2022-04-24] MEDS ORDERED: IBUPROFEN 600 MG TABLET (FP) PO PRN (17:33)
[2022-04-24] MEDS ORDERED: DICYCLOMINE HCL 10 MG CAPSULE PO PRN (17:33)
[2022-04-24] MEDS ORDERED: BISMUTH SUBSALICYLATE 524 MG/30 ML PO PRN (17:33)
[2022-04-24] MEDS ORDERED: chlordiazePOXIDE HCL 25 MG CAPSULE PO PRN (17:33)
[2022-04-24] MEDS ORDERED: hydrOXYzine PAMOATE 25 MG CAPSULE (FP) PO PRN (17:33)
[2022-04-24] MEDS ORDERED: QUEtiapine FUMARATE 100 MG TABLET (FP) PO ONE (22:00)
[2022-04-24] MEDS: MELATONIN 5 MG TABLETS PO SCH (22:06)
[2022-04-24] MEDS: THIAMINE HCL 100 MG TABLET (FP) PO SCH (22:06)
[2022-04-24] MEDS: METHOCARBAMOL 500 MG TABLET PO PRN (22:08)
[2022-04-24] MEDS: chlordiazePOXIDE HCL 25 MG CAPSULE PO SCH (22:08)
[2022-04-25] MEDS: chlordiazePOXIDE HCL 25 MG CAPSULE PO SCH ×4 (05:32→22:30)
[2022-04-25] MEDS: PRENATAL VITAMINS W/ FOLIC ACID TABLET (FP) PO SCH (10:20)
[2022-04-25 10:57] LABS: HEMATOCRIT 38.2 % (35.4-49); HEMOGLOBIN 13.2 GM/dL (11.7-16.9); MCH 30.6 pg (25.7-33.7); MCHC 34.6 g/dl (32.0-35.9); MEAN CELL VOLUME 88.3 fl (80-96); MEAN PLT VOLUME 8.8 fl (7.5-11.1); PLATELET COUNT 175 10^3/uL (134-434); RBC 4.32 M/mm3 (4.00-5.60); RDW 14.5 % (11.9-15.9); WHITE BLOOD COUNT 2.9 K/mm3 (4.0-10.0)
[2022-04-25 11:19] LABS: ALBUMIN 3.3 g/dl (3.4-5.0)
[2022-04-25 11:21] LABS: CREATININE 0.9 mg/dL (0.55-1.3)
[2022-04-25 11:22] LABS: CALCIUM 8.9 mg/dL (8.5-10.1)
[2022-04-25 11:23] LABS: BILIRUBIN,TOTAL 0.3 mg/dL (0.2-1); BLOOD UREA NITROGEN 11.9 mg/dL (7-18); TOT PROT 6.2 g/dl (6.4-8.2)
[2022-04-25] MEDS ORDERED: ALBUTEROL SO4 HFA INHALER IH PRN (11:31)
[2022-04-25] MEDS: FINASTERIDE 5 MG TABLET (FP) PO SCH (12:49)
[2022-04-25] MEDS: QUEtiapine FUMARATE 200 MG TABLET PO SCH (22:28)
[2022-04-25] MEDS: TAMSULOSIN HCL 0.4 MG CAP PO SCH (22:28)
[2022-04-25] MEDS: THIAMINE HCL 100 MG TABLET (FP) PO SCH (22:28)
[2022-04-25] MEDS: MELATONIN 5 MG TABLETS PO SCH (22:28)
[2022-04-25] MEDS: PRAZOSIN HCL 1 MG CAPSULE PO SCH (22:28)
[2022-04-25] MEDS: METHOCARBAMOL 500 MG TABLET PO PRN (22:30)
[2022-04-26] MEDS: chlordiazePOXIDE HCL 25 MG CAPSULE PO SCH ×4 (05:55→22:25)
[2022-04-26] MEDS ORDERED: PATIENT'S OWN MEDICATION (NON-FORMULARY) (Sertraline Hcl [Zoloft] 100 MG Tablet) PO SCH (10:00)
[2022-04-26] MEDS: FINASTERIDE 5 MG TABLET (FP) PO SCH (10:45)
[2022-04-26] MEDS: SERTRALINE HCL 50 MG TABLET (FP) PO SCH (10:45)
[2022-04-26] MEDS: PRENATAL VITAMINS W/ FOLIC ACID TABLET (FP) PO SCH (10:45)
[2022-04-26] MEDS: PRAZOSIN HCL 1 MG CAPSULE PO SCH (22:24)
[2022-04-26] MEDS: MELATONIN 5 MG TABLETS PO SCH (22:24)
[2022-04-26] MEDS: THIAMINE HCL 100 MG TABLET (FP) PO SCH (22:25)
[2022-04-26] MEDS: QUEtiapine FUMARATE 200 MG TABLET PO SCH (22:25)
[2022-04-26] MEDS: TAMSULOSIN HCL 0.4 MG CAP PO SCH (22:25)
[2022-04-26] MEDS: METHOCARBAMOL 500 MG TABLET PO PRN (22:26)
[2022-04-27] MEDS ORDERED: chlordiazePOXIDE HCL 10 MG CAPSULE PO PRN
[2022-04-27] MEDS: chlordiazePOXIDE HCL 10 MG CAPSULE PO SCH ×4 (06:18→22:56)
[2022-04-27] MEDS: PRENATAL VITAMINS W/ FOLIC ACID TABLET (FP) PO SCH (10:28)
[2022-04-27] MEDS: SERTRALINE HCL 50 MG TABLET (FP) PO SCH (10:28)
[2022-04-27] MEDS: FINASTERIDE 5 MG TABLET (FP) PO SCH (10:28)
[2022-04-27] MEDS: TAMSULOSIN HCL 0.4 MG CAP PO SCH (22:56)
[2022-04-27] MEDS: MELATONIN 5 MG TABLETS PO SCH (22:56)
[2022-04-27] MEDS: QUEtiapine FUMARATE 200 MG TABLET PO SCH (22:56)
[2022-04-27] MEDS: THIAMINE HCL 100 MG TABLET (FP) PO SCH (22:57)
[2022-04-27] MEDS: PRAZOSIN HCL 1 MG CAPSULE PO SCH (22:57)
[2022-04-28] MEDS: chlordiazePOXIDE HCL 10 MG CAPSULE PO SCH ×2 (05:53→17:27)
[2022-04-28] MEDS: FINASTERIDE 5 MG TABLET (FP) PO SCH (10:38)
[2022-04-28] MEDS: SERTRALINE HCL 50 MG TABLET (FP) PO SCH (10:38)
[2022-04-28] MEDS: PRENATAL VITAMINS W/ FOLIC ACID TABLET (FP) PO SCH (10:38)
[2022-04-28] MEDS: MELATONIN 5 MG TABLETS PO SCH (22:30)
[2022-04-28] MEDS: TAMSULOSIN HCL 0.4 MG CAP PO SCH (22:30)
[2022-04-28] MEDS: PRAZOSIN HCL 1 MG CAPSULE PO SCH (22:30)
[2022-04-28] MEDS: THIAMINE HCL 100 MG TABLET (FP) PO SCH (22:30)
[2022-04-28] MEDS: QUEtiapine FUMARATE 200 MG TABLET PO SCH (22:30)
[2022-04-29] MEDS ORDERED: chlordiazePOXIDE HCL 10 MG CAPSULE PO ONE (05:00)
[2022-04-29 09:32] VITALS: BP 118/76; PULSE 85; RESP 16; TEMP 97.4
[2022-04-29] MEDS: SERTRALINE HCL 50 MG TABLET (FP) PO SCH (10:00)
[2022-04-29] MEDS: FINASTERIDE 5 MG TABLET (FP) PO SCH (10:00)
[2022-04-29] MEDS: PRENATAL VITAMINS W/ FOLIC ACID TABLET (FP) PO SCH (10:00)
== END 2022-04-29 10:07 | disposition home or self-care (01) | DRG 774 ==
LOC: YASAS 14:12 → Y3N 18:15
PROVIDERS: ADMIT Allergy & Immunology; ATTEND Surgery
PROC: HZ2ZZZZ Detoxification Services for Substance Abuse Treatment (ICD-10-PCS; principal; 2022-04-24)
DX: F10.230 Alcohol dependence with withdrawal, uncomplicated (principal); F14.20 Cocaine dependence, uncomplicated; F17.210 Nicotine dependence, cigarettes, uncomplicated; F10.282 Alcohol dependence with alcohol-induced sleep disorder; F19.24 Other psychoactive substance dependence with psychoactive substance-induced mood disorder; F43.10 Post-traumatic stress disorder, unspecified; J45.909 Unspecified asthma, uncomplicated; N40.0 Benign prostatic hyperplasia without lower urinary tract symptoms; Z62.810 Personal history of physical and sexual abuse in childhood; E66.9 Obesity, unspecified; Z68.32 Body mass index [BMI] 32.0-32.9, adult; Z86.19 Personal history of other infectious and parasitic diseases; Z91.199 Patient's noncompliance with other medical treatment and regimen due to unspecified reason
CPT/HCPCS: 36415; 80053; 85027; 86780; 87811; C9803-CS; U0003; U0005